=== PATIENT | female | born 1940 | race Caucasian/White ===

== ENCOUNTER → 2023-12-25 11:04 | Outpatient (REF) | payer MEDICARE, SELFPAY | LOC: RAD 11:04 | PROVIDERS: ATTENDING PHYSICIAN Internal Medicine Rheumatology; FAMILY PHYSICIAN Internal Medicine | DX: M06.4 Inflammatory polyarthropathy (principal); M19.011 Primary osteoarthritis, right shoulder; M25.539 Pain in unspecified wrist; M32.9 Systemic lupus erythematosus, unspecified; M79.646 Pain in unspecified finger(s); M79.673 Pain in unspecified foot; R76.8 Other specified abnormal immunological findings in serum | CPT/HCPCS: 73100; 73120; 73630 ==

== ENCOUNTER → 2023-12-27 12:58 | Outpatient (REF) | payer MEDICARE, SELFPAY | LOC: HWRAD 12:58 | PROVIDERS: ATTENDING PHYSICIAN Internal Medicine | DX: M81.0 Age-related osteoporosis without current pathological fracture (principal) | CPT/HCPCS: 77080 ==

== ENCOUNTER 2024-02-01 15:04 | Inpatient (IN) | payer MEDICARE, SELFPAY ==
[2024-02-01] VITALS (13 sets, daily range): BP systolic 94–156; BP diastolic 61–108; BMI 31.6; BMI 30.1
[2024-02-01 11:55] LABS: % Basophils 0.5 % (0-2); % Eosinophils 1.1 % (0-6); % Immature Granulocytes 0.3 % (0-0.5); % Lymphocytes 16.2 % (20.5-51.1); % Monocytes 8.8 % (1.7-9.3); % Neutrophils 73.1 % (42.2-75.2); Absolute Eosinophils 0.1 10^3/uL (0-0.7); Absolute Lymphocytes 1.2 10^3/uL (1.2-3.4); Absolute Monocytes 0.7 10^3/uL (0.1-0.6); Absolute Neutrophils 5.4 10^3/uL (1.4-6.5); Hematocrit 47.9 % (37.0-47.0); Hemoglobin 15.5 g/dL (12.0-16.0); Mean Corp Hgb Conc. 32.4 g/dL (33.0-37.0); Mean Corpuscular Hgb 29.9 pg (27.0-31.0); Mean Corpuscular Volume 92.3 fL (81.0-99.0); Mean Platelet Volume 8.9 fL (7.4-10.4); Nucleated Red Blood Cells % 0 %; Platelet Count 240 10^3/uL (130-400); Red Blood Cell Count 5.19 10^6/uL (4.20-5.40); Red Cell Dist. Width 15.2 % (11.5-14.5); White Blood Cell Count 7.4 10^3/uL (4.8-10.8)
[2024-02-01 12:21] LABS: ALT (SGPT) 18 U/L (0-35); AST (SGOT) 39 U/L (14-36); Albumin 4.9 g/dl (3.5-5.0); Alkaline Phosphatase 231 U/L (38-126); Blood Urea Nitrogen 30 mg/dl (7-17); Calcium 10.1 mg/dl (8.4-10.2); Carbon Dioxide 24 mmol/L (22-30); Chloride 102 mmol/L (98-107); Estimated Creatinine Clearance 40 ml/min; Glucose 96 mg/dl (70-99); Potassium 3.9 mmol/L (3.5-5.1); Sodium 139 mmol/L (135-145); Total Bilirubin 1.5 mg/dl (0.2-1.3); Total Protein 8.3 g/dl (6.3-8.2); eGFR 56.25
[2024-02-01 12:24] LABS: INR 1.57; PT 18.6 Sec (11.4-14.6)
[2024-02-01 12:26] LABS: APTT 36.6 Sec (23.4-35.0)
[2024-02-01 12:29] LABS: NT-proBNP 3910 pg/ml; Troponin I < 0.012 ng/ml
[2024-02-01] MEDS: ROCEPHIN 1000 MG IV (12:47)
[2024-02-01] MEDS: LASIX IV (13:17)
[2024-02-01] MEDS: VIBRAMYCIN 260 MG IV ×2 (13:19→21:07)
[2024-02-01 13:29] LABS: Lactic Acid 1.2 mmol/L (0.7-2.0)
--- NOTE | 2024-02-01 13:40 | HPS.HSE ---
Family Physician
-
Family Physician: Irene Cazares
Chief Complaint
-
SOB
History of Present Illness
The patient is an 83 yo woman with PMH significant for pulmonary HTN, A.fib on Eliquis, dilated RA, CHF, cardiac arrest 20[place] cruise ship, SLE/RA not on active tx due to macular degeneration (newly diagnosed), hypothyroidism, who presents to the
ED due to SOB that has worsened over the past 1 week. She's noticed this past week fluctuation in her weight by 3-4 pounds up one day, down the next, associated with increased work of breathing, associated with increased fatigue over the past 1
week. She takes Lasix every other day typically, took Lasix 40 mg PO this am. She goes to bed typically at 1 am, and noticed some increased dyspnea at bedtime last night, and this morning increased work of breathing after walking downstairs, which
is what brought her into the ED along with high heart rate (she monitors her vitals daily-HR 130s at home). She denies cough, denies noticing swelling in legs, no CP, no fevers, no URI symptoms, eating well up until today, no n/v/d, no abdominal
pain, no dysuria. In ED, she is in A.fib with RVR, CXR shows what looks like LLL consolidation and increased pulmonary edema.
ED txt: Lasix 40 IV (given approximately 3 pm), Cardizem 5 mg IV(not received due to soft BP), Cardizem gtt (not started), Rocephin IV 1 g, Doxy 100 mg IV
Medical History
Past Medical History
Past Medical History: Reports Arrhythmia (A.Fib with RVR), CAD (NSTEMI), Cancer (DCIS), CHF, HTN (Chronic diastolic), Hypercholesterolemia, Hypothyroidism and Other (SLE/RA)
Past Surgical History: Reports Cardiac (cardioversion 2016, 2010; cardiac cath 08/2017), Cholecystectomy, Orthopedic (Left knee replacement, right hip replacement) and Other (Right lumpectomy 2020)
Social History
Tobacco: Former Smoker
Alcohol: None
Drug: None
Family History
Family History: Other (Father 97 yo , mother from an accident in 1984)
Allergies / Home Medications
Allergies reflects when Allergies were last updated in [facility] [employer].
Home Medications with original date entered in [facility] [employer]
Allergy/Medication List:
Allergies
Allergy/AdvReac Type Severity Reaction Status Date / Time
No Known Allergies Allergy Verified 02/01/24 11:17
Home Medications
acetaminophen 500 mg tablet (Tylenol Extra Strength) 1,000 mg PO Q6HPRN PRN mild pain 10/08/19
biotin 5 mg capsule 5 mg PO DAILY 10/08/19
cholecalciferol (vitamin D3) 25 mcg (1,000 unit) tablet 1,000 units PO DAILY 10/08/19
furosemide 40 mg tablet 40 mg PO DAILYPRN PRN fluid 10/08/19
vit C 250 mg-vit E 90 mg-zinc 40 mg-copper 1 [id number] capsule (PreserVision AREDS-2) 1 ea PO BID 10/08/19
allopurinol 100 mg tablet 100 mg PO DAILY 02/01/24
apixaban 5 mg tablet (Eliquis) 5 mg PO BID 02/01/24
empagliflozin 10 mg tablet (Jardiance) 10 mg PO DAILY 02/01/24
levothyroxine 112 mcg tablet (Synthroid) 112 mcg PO DAILY 02/01/24
metoprolol succinate 100 mg tablet,extended release 24 hr 50 mg PO BID 02/01/24
rosuvastatin 5 mg tablet (Crestor) 5 mg PO DAILY 02/01/24
umeclidinium 62.5 mcg/actuation blister powder for inhalation (Incruse Ellipta) 1 inh inhalation R DAILYPRN PRN sob 02/01/24
Review of Systems
-
A 12 point ROS was completed and negative except as noted: Yes
Physical Exam
Vital Signs
Vital Signs
Temp Pulse Resp BP Pulse Ox
98.1 F 113 21 106/86 97
02/01/24 12:45 02/01/24 13:17 02/01/24 12:46 02/01/24 13:17 02/01/24 11:50
Physical Exam
General: Well Developed, Well Nourished, No Apparent Distress, Comfortable and Conversant
HEENT: NormoCephalic, Anicteric and Moist mucous membranes
Respiratory: Other (decreased BS LLL)
Cardiac: Irregular Rhythm and Tachycardia
GI: Soft, Non Tender and Non Distended
Musculoskeletal: No Clubbing, No Cyanosis and No Edema
Skin: Warm and Dry
Neuro: AO x 3, No Motor Deficits and Nonfocal/grossly intact
Psych: Calm
Laboratory Results
-
02/01/24 11:47
02/01/24 11:47
Laboratory Results
PT 18.6 Sec (11.4-14.6) H 02/01/24 11:47
INR 1.57 02/01/24 11:47
APTT 36.6 Sec (23.4-35.0) H 02/01/24 11:47
Lactic Acid Cancelled 02/01/24 16:30
Total Bilirubin 1.5 mg/dl (0.2-1.3) H 02/01/24 11:47
AST 39 U/L (14-36) H 02/01/24 11:47
ALT 18 U/L (0-35) 02/01/24 11:47
Alkaline Phosphatase 231 U/L (38-126) H 02/01/24 11:47
Troponin I < 0.012 ng/ml 02/01/24 11:47
Data Reviewed
-
Diagnostic Radiology: Image Personally Visualized and interpreted and Report Reviewed by me (LLL PNA)
Medical Tests (Nuc Med, Echo, EKG etc): Report Reviewed by me (Cindy.violetta RVR incomplete RBBB, LAFB, vent rate 127)
Impression/Plan
-
IMPRESSION:The patient is an 83 yo woman with PMH significant for pulmonary HTN, A.fib on Eliis, dilated RA, CHF, [place], SLE/RA not on active tx due to macular degeneration (newly diagnosed), hypothyroidism, who
presents to the ED due to SOB that has worsened over the past 1 week. She's noticed this past week fluctuation in her weight by 3-4 pounds up one day, down the next, associated with increased work of breathing, associated with increased fatigue over
the past 1 week. She takes Lasix every other day typically, took Lasix 40 mg PO this am. She goes to bed typically at 1 am, and noticed some increased dyspnea at bedtime last night, and this morning increased work of breathing after walking
downstairs, which is what brought her into the ED along with high heart rate (she monitors her vitals daily-HR 130s at home). She denies cough, denies noticing swelling in legs, no CP, no fevers, no URI symptoms, eating well up until today, no
n/v/d, no abdominal pain, no dysuria. In ED, she is in A.fib with RVR, CXR shows what looks like LLL consolidation and increased pulmonary edema.
ED txt: Lasix 40 IV (given approximately 3 pm), Cardizem 5 mg IV(not received due to soft BP), Cardizem gtt (not started), Rocephin IV 1 g, Doxy 100 mg IV
#SOB, CXR is concerning for a LLL consolidation, likely underlying pneumonia , possibly gram negative bacterial , CAP though patient is afebrile, with normal WBC and with components of CHF exacerbation
-will txt with continued IV abx for now and check pro-calcitonin level
-CXR is portable only-will get PA/Lat CXR in the am as well
-blood cx pending, sputum cx , Legionella Urinary antigen pending
#HFpEF, likely exacerbation s/p 1 dose IV Lasix in ED
-Echo 2020 EF 60-65% severely dilated RA
-Echo [place] [facility] Dr. Curry EF 60%, moderate mitral and tricuspid regurgitation
-Cont IV Lasix 40 BID for now and closely monitor i/o, daily weights
-Cards Cx appreciated
#A.fib RVR, possibly exacerbated by infection,
-Cardizem 5 mg not given in ED-pt is due for nightly BB soon-will give oral BB, and monitor on tele; HR currently in low 100s (107), low threshold to start Cardizem gtt if BP allows
-txt infection
-Cards Cx
-continue Eliquis BID
-check Mg
#Essential HTN
-cont home meds
#HLD
-statin
#Hypothyroidism
-check TSH
#Pulm HTN
-follows OP Pulm
-cont O2 and wean
-monitor
DVT proph-cont Eliquis
Full Code
[2024-02-01 13:59] LABS: COVID-19 Antigen Negative (Negative)
[2024-02-01] MEDS: LASIX 40 MG IV (15:02)
--- NOTE | 2024-02-01 16:58 | CON.CAR ---
Consultation
Consultation Request
Date/Time Consultation Requested: 02/01/2024 15: 00
Date/Time Consultation Performed: 02/01/2024 16: 00
Requesting Provider: Ankita
Performing Provider: Bandar
Reason for Consultation: chf
Medical History
-
Chief Complaint: Shortness of breath
History of Present Illness:
Sruthi has a history of permanent atrial fibrillation, left atrial appendage thrombus, chronic Eliquis, chronic diastolic CHF, hypothyroidism, moderate MR, hyperlipidemia, lupus, hypertension.
She is in [place] for part of the year. She was seen in our office in May 2023 then followed up at [facility] with Dr. Rider. She has been well until last night when she noticed shortness of breath and gurgling. She sat up and felt better. She
then had more shortness of breath and noted her heart rate to be in the 130s today came to the ER. She is admitted for acute diastolic CHF. She has had a 3 to 4 pound weight gain in the past week. She feels her normal weight is approximately 165
pounds.
PMH:
Chronic HFrEF
CM EF 45% by echo in [place] 07/01/19
Moderate MR by echo 07/01/19
Persistent Afib
Chronic Eliquis
HTN
Hypothyroidism
Past Medical History
Past Medical History: Other (See HPI)
Past Surgical History: Cholecystectomy (1987), Orthopedic (Left knee replacement 2006) and Other (Bilateral cataract surgery, right lumpectomy)
Social History
Tobacco: Former Smoker
Alcohol: None
Drug: None
Personal:
Living: With Family
Employment: Retired
Family History
Family History: Other (Father at 97, mother at 85. There is no family history of premature coronary artery disease)
Allergies / Home Medications
Allergy/AdvReac Type Severity Reaction Status Date / Time
No Known Allergies Allergy Verified 02/01/24 11:17
�Medication �Instructions �Recorded �Confirmed �Type
acetaminophen 500 mg tablet 1,000 mg PO Q6HPRN PRN mild pain 10/08/19 02/01/24 History
(Tylenol Extra Strength)
biotin 5 mg capsule 5 mg PO DAILY 10/08/19 02/01/24 History
cholecalciferol (vitamin D3) 25 1,000 units PO DAILY 10/08/19 02/01/24 History
mcg (1,000 unit) tablet
furosemide 40 mg tablet 40 mg PO DAILYPRN PRN fluid 10/08/19 02/01/24 History
vit C 250 mg-vit E 90 mg-zinc 40 1 ea PO BID 10/08/19 02/01/24 History
mg-copper 1 [id number]
capsule (PreserVision AREDS-2)
allopurinol 100 mg tablet 100 mg PO DAILY 02/01/24 02/01/24 History
apixaban 5 mg tablet (Eliquis) 5 mg PO BID 02/01/24 02/01/24 History
empagliflozin 10 mg tablet 10 mg PO DAILY 02/01/24 02/01/24 History
(Jardiance)
levothyroxine 112 mcg tablet 112 mcg PO DAILY 02/01/24 02/01/24 History
(Synthroid)
metoprolol succinate 100 mg 50 mg PO BID 02/01/24 02/01/24 History
tablet,extended release 24 hr
rosuvastatin 5 mg tablet (Crestor) 5 mg PO DAILY 02/01/24 02/01/24 History
umeclidinium 62.5 mcg/actuation 1 inh inhalation R DAILYPRN PRN sob 02/01/24 02/01/24 History
blister powder for inhalation
(Incruse Ellipta)
Review of Systems
-
History Source: Patient
All other systems: Negative unless noted
Constitutional: Weight Gain (Gained 4 pounds in the past week)
EENT: No Symptoms
Respiratory: Trouble Breathing
Cardiac: No Symptoms
Abdomen/GI: No Symptoms
: No Symptoms
Musculoskeletal: No Symptoms
Skin: No Symptoms
Neurological: No Symptoms
Endocrine: No Symptoms
Hematologic/Lymphatic: No Symptoms
Physical Exam
Vital Signs
Temp Pulse Resp BP Pulse Ox
98.0 F 93 18 126/82 98
02/01/24 16:54 02/01/24 16:54 02/01/24 16:54 02/01/24 16:54 02/01/24 16:54
General: Well developed, well nourished in NAD.
Neck: Supple, no JVD, HJR, carotids +2 B/L, no bruits bilaterally.
Heart: Non displaced PMI, RRR, no murmurs, No S3, S4, no rubs.
Lungs: Scattered rhonchi at the bases
Abdomen: Normal bowel sounds, soft, non-tender, non-distended.
Extremities: No clubbing, cyanosis or edema bilaterally.
Neuro: Grossly nonfocal, awake, alert and oriented x3.
Lab Results
02/01/24 11:47
02/01/24 11:47
Troponin I < 0.012 ng/ml 02/01/24 11:47
Uyr-Q-Ruxynapwoac Pept 3910 pg/ml 02/01/24 11:47
Impression / Plan
-
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 Mitch Garcia [facility] [place] [phone] open 9-4:30
[facility] Rider
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
Impression:
Acute HFrEF
Moderate MR by echo 07/01/19 and September 2023
Status post possible PEA arrest on a cruise ship April 2023 and also had COVID, UTI and CHF
Permanent Afib
Chronic Eliquis
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
Lupus
HTN
Hypothyroidism
Echo 07/01/19: [facility]: EF 45%, mild AI/, mod MR
Echocardiogram 08/12/2020: Ejection fraction 50 to 55%, moderate MR, mild AI, moderate TR PA systolic of 56 mmHg
Echocardiogram June 2021: Ejection fraction 60 to 65%, mild to moderate TR with PA systolic of 30 mmHg and moderate MR
Echocardiogram 02/06/2023: Ejection fraction 50 to 55%, LVH, no significant mitral valve disease
KATARINA 05/06/2023: Ejection fraction 60 to 65%, spontaneous contrast left atrial appendage which was poorly visualized, mild MR, mild TR
4-day monitor February 2021 with permanent atrial fibrillation with mean heart rate of 85
Echocardiogram 09/16/2023: Ejection fraction 60%, moderate MR, moderate TR, moderate pulm hypertension with PA systolic of 57 mm Hg
Lexiscan sestamibi stress test 05/30/2023: Small fixed mild anteroseptal defect consistent with soft tissue attenuation�intermediate risk stress test due to pharmacologic protocol
Plan:
She presents with acute diastolic CHF with proBNP of 3910
Also chest x-ray is read as pneumonia as well
Will continue IV Lasix and antibiotics
Of note she reports normal weight is 165 pounds and she is 161 pounds in the ER on a bed scale.
May be more pneumonia than CHF.
Will need to get records from [facility]
Continue rate control and anticoagulation for atrial fibrillation
Discussed with patient and son at bedside
Data Reviewed
-
EKG: Tracing Personally Visualized and interpreted
Radiology: Report Reviewed by me
Medical Tests (Nuc Med, Echo etc): Report Reviewed by me
Labs: Labs Reviewed by me
Old Records: Reviewed
--- NOTE | 2024-02-01 17:30 | PTCARENOTE ---
Received from ED, VSS, monitor shows afbib, hr 70-90s. Denies pain, no SOB. Lung sounds diminished in left base, 2L intact.
[2024-02-01 18:38] LABS: Troponin I < 0.012 ng/ml
[2024-02-01 18:46] LABS: Procalcitonin 0.07 ng/ml (0.0-0.25)
[2024-02-01] MEDS: ELIQUIS 5 MG PO (21:05)
[2024-02-01] MEDS: TYLENOL 1000 MG PO (21:05)
[2024-02-01] MEDS: OCUVITE SOFTGEL 1 CAP PO (21:07)
[2024-02-01] MEDS: TOPROL XL 50 MG PO (21:14)
[2024-02-02] VITALS (7 sets, daily range): BP systolic 104–139; BP diastolic 63–88; PULSE 91; O2SAT 98; BMI 30.3
[2024-02-02] MEDS: SYNTHROID 112 MCG PO (05:49)
[2024-02-02 09:09] LABS: Hematocrit 42.2 % (37.0-47.0); Hemoglobin 13.8 g/dL (12.0-16.0); Mean Corp Hgb Conc. 32.7 g/dL (33.0-37.0); Mean Corpuscular Hgb 29.8 pg (27.0-31.0); Mean Corpuscular Volume 91.1 fL (81.0-99.0); Mean Platelet Volume 9.3 fL (7.4-10.4); Platelet Count 219 10^3/uL (130-400); Red Blood Cell Count 4.63 10^6/uL (4.20-5.40); White Blood Cell Count 4.9 10^3/uL (4.8-10.8)
[2024-02-02] MEDS: ZYLOPRIM 100 MG PO (09:14)
[2024-02-02] MEDS: TOPROL XL 50 MG PO ×2 (09:14→19:45)
[2024-02-02] MEDS: CRESTOR 5 MG PO (09:14)
[2024-02-02] MEDS: ELIQUIS 5 MG PO ×2 (09:14→19:46)
[2024-02-02] MEDS: JARDIANCE 10 MG PO (09:14)
[2024-02-02] MEDS: OCUVITE SOFTGEL 1 CAP PO ×2 (09:15→19:47)
[2024-02-02] MEDS: LASIX 40 MG IV ×2 (09:15→16:43)
[2024-02-02] MEDS: VIBRAMYCIN 260 MG IV (09:15)
[2024-02-02 09:34] LABS: ALT (SGPT) 17 U/L (0-35); AST (SGOT) 30 U/L (14-36); Albumin 3.8 g/dl (3.5-5.0); Alkaline Phosphatase 192 U/L (38-126); Blood Urea Nitrogen 28 mg/dl (7-17); Calcium 9.5 mg/dl (8.4-10.2); Carbon Dioxide 30 mmol/L (22-30); Chloride 103 mmol/L (98-107); Estimated Creatinine Clearance 45 ml/min; Glucose 77 mg/dl (70-99); Magnesium 2.2 mg/dl (1.6-2.3); Potassium 3.9 mmol/L (3.5-5.1); Sodium 138 mmol/L (135-145); Total Protein 6.6 g/dl (6.3-8.2); eGFR > 60.00
[2024-02-02 10:02] LABS: TSH Reflex To Free T4 2.58 uIU/ml (0.47-4.68)
--- NOTE | 2024-02-02 10:25 | CM ---
Patient seen bedside with son Louis in room.
Patient independent prior to admission.
Patient lives in [place], will need records on d/c, medical release form given to patient.
patient lives in a 2 story home with 13 steps to second floor.
Patient drives.
Patient has not had VN, did attend outpatient therapy in the past.
Son will transport home.
PCP: dr Cazares
Pharmacy; [facility]
Plan: home, no needs anticipated.
--- NOTE | 2024-02-02 10:47 | W.PN.CARDCBS ---
Today's Communication / Plan
-
Continue IV Lasix
Continue antibiotics
Consider change to oral Lasix on 02/02
Get records from [facility]
Impression / Plan
-
Gamemaster: Dr. Mitch Garcia [facility] [phone] open 9-4:30
[facility] Adry
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
Impression:
Acute HFrEF
Moderate MR by echo 07/01/19 and September 2023
Status post possible PEA arrest on a cruise ship April 2023 and also had COVID, UTI and CHF
Permanent Afib
Chronic Eliquis
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
Lupus
HTN
Hypothyroidism
Echo 07/01/19: [facility]: EF 45%, mild AI/, mod MR
Echocardiogram 08/12/2020: Ejection fraction 50 to 55%, moderate MR, mild AI, moderate TR PA systolic of 56 mmHg
4-day monitor February 2021 with permanent atrial fibrillation with mean heart rate of 85
Echocardiogram June 2021: Ejection fraction 60 to 65%, mild to moderate TR with PA systolic of 30 mmHg and moderate MR
Echocardiogram 02/06/2023: Ejection fraction 50 to 55%, LVH, no significant mitral valve disease
[facility] 05/06/2023: Ejection fraction 60 to 65%, spontaneous contrast left atrial appendage which was poorly visualized, mild MR, mild TR
Lexiscan sestamibi stress test 05/30/2023: Small fixed mild anteroseptal defect consistent with soft tissue attenuation�intermediate risk stress test due to pharmacologic protocol
Echocardiogram 09/16/2023: Ejection fraction 60%, moderate MR, moderate TR, moderate pulm hypertension with PA systolic of 57 mm Hg
Plan:
She seems much improved
May be more pneumonia than CHF
Continue IV Lasix and consider change to oral Lasix on 02/02
Will need to get records from [facility]
Continue rate control and anticoagulation for atrial fibrillation
Progress Note - Gamemaster
Subjective
Date of Service: February 02, 2024
She is without complaints.
Objective
Labs:
02/02/24 07:51
02/02/24 07:51
Labs
Hgb 13.8 g/dL (12.0-16.0) 02/02/24 07:51
Hct 42.2 % (37.0-47.0) 02/02/24 07:51
Plt Count 219 10^3/uL (130-400) 02/02/24 07:51
PT 18.6 Sec (11.4-14.6) H 02/01/24 11:47
INR 1.57 02/01/24 11:47
APTT 36.6 Sec (23.4-35.0) H 02/01/24 11:47
Sodium 138 mmol/L (135-145) 02/02/24 07:51
Potassium 3.9 mmol/L (3.5-5.1) 02/02/24 07:51
BUN 28 mg/dl (7-17) H 02/02/24 07:51
Creatinine 0.9 mg/dL (0.6-1.0) 02/02/24 07:51
Glucose 77 mg/dl (70-99) 02/02/24 07:51
Troponins
02/01/24 02/01/24
11:47 17:26
Troponin I < 0.012 < 0.012
Vital Signs and I&O:
Vital Signs
Temp Pulse Resp BP Pulse Ox
97.8 F 83 16 104/70 98
02/02/24 07:41 02/02/24 08:17 02/02/24 08:17 02/02/24 07:41 02/02/24 08:17
Vital Signs
Temp Pulse Resp BP Pulse Ox
97.8 F 83 16 104/70 98
02/02/24 07:41 02/02/24 08:17 02/02/24 08:17 02/02/24 07:41 02/02/24 08:17
Intake & Output
01/31/24 02/01/24 02/02/24 02/03/24
06:59 06:59 06:59 06:59
Intake Total 540 / 540
Output Total 350 / 350
Balance 190 / 190
Physical Exam
Physical Exam
General: Well developed, well nourished in NAD.
Neck: Supple, no JVD, HJR, carotids +2 B/L, no bruits bilaterally.
Heart: Non displaced PMI, irregular, 2/6 basal systolic murmur, No S3, S4, no rubs.
Lungs: Scattered rhonchi
Extremities: No clubbing, cyanosis or edema bilaterally.
Neuro: Grossly nonfocal, awake, alert and oriented x3.
[2024-02-02] MEDS: STERILE WATER FOR INJECTION 10 ML IV (12:01)
[2024-02-02] MEDS: ROCEPHIN 1000 MG IV (12:01)
--- NOTE | 2024-02-02 12:13 | W.PN.HOSP.TC ---
Today's Communication/Plan
-
cont diuresis per cards
echo in AM
consult pulm
Assessment / Plan
Assessment / Plan
pt is an 83 year old female
SOB--CXR is concerning for a LLL consolidation (loculated pleural effusion), possibly underlying pneumonia though patient is afebrile with normal WBC and with components of CHF exacerbation--consult pulm--procalcitonin negative--blood cx pending,
sputum cx , Legionella Urinary antigen neg--cont rocephin/doxy
acute exacerbation of HFpEF-- s/p 1 dose IV Lasix in ED---Cont IV Lasix 40 BID for now and closely monitor i/o, daily weights--Cards Cx appreciated--echo pending
paroxysmal A.fib RVR-- possibly exacerbated by infection--cont rate control and eliquis
Essential HTN--cont home meds
HLD--statin
Hypothyroidism--check TSH
Pulm HTN--follows OP Pulm--cont O2 and wean
DVT proph-cont Eliquis
Full Code
Anticipated Discharge: > 48 hours
Subjective/Interval History
-
Date of Service: February 02, 2024
pt feeling much improved since admission
Objective Data
-
Labs:
Laboratory Results
02/02/24
07:51
WBC 4.9
Hgb 13.8
Hct 42.2
Plt Count 219
Sodium 138
Potassium 3.9
Chloride 103
Carbon Dioxide 30
BUN 28 H
Creatinine 0.9
Glucose 77
Calcium 9.5
Total Bilirubin 1.0
AST 30
ALT 17
Alkaline Phosphatase 192 H
Vital Signs:
max temp for 24 hours
02/01/24
12:45
Temp 98.1 F
Vital Signs
Temp Pulse Resp BP Pulse Ox
97.8 F 83 16 104/70 98
02/02/24 07:41 02/02/24 08:17 02/02/24 08:17 02/02/24 07:41 02/02/24 08:17
I&O
02/01/24 02/02/24 02/03/24
06:59 06:59 06:59
Intake Total 540 / 540
Output Total 350 / 350
Balance 190 / 190
Review of Systems
-
All other systems: Reviewed and negative
Physical Exam
-
General: Well Developed, Well Nourished and No Apparent Distress
HEENT: Normocephalic and Atraumatic; Negative Oxygen
Respiratory: Clear to Auscultation; Negative Wheezes, Rales, Rhonchi or Crackles
Cardiac: Irregular Rhythm; Negative Murmur
GI: Soft, Nontender, Nondistended and Normal Bowel Sounds
Musculoskeletal: No Clubbing, No Cyanosis and No Edema
Skin: Warm
Neuro: Awake and Alert
--- NOTE | 2024-02-02 14:30 | CON.PUL ---
Consultation
Consultation Request
Date/Time Consultation Requested: 02/02/2024 - 121
Date/Time Consultation Performed: 02/02/2024 - 1340
Requesting Provider: Dr. Varma
Performing Provider: Dr. Palma
Reason for Consultation: Loculated pleural effusion
Medical History
-
Chief Complaint: SOB
History of Present Illness:
Patient is an 83-year-old female with a past medical history of diastolic heart failure, gout, hypertension, hyperlipidemia, paroxysmal A-fib on Eliquis, hypothyroidism, history of right-sided breast cancer (DCIS), and history of cardiac arrest
(April 2023) who presents with shortness of breath and rapid heart rate that began on morning of admission. In the ER she was tachycardic to 144, tachypneic to 22, BP 154/107, she was afebrile to 98 �F and SpO2 97% on room air. Labs showed an
elevated BUN of 30, total bilirubin of 1.5, increased ALP of 231, proBNP of 3910 and she was COVID antigen negative. Blood cultures were collected and she was flu A/B swab negative. CXR was performed showing acute interstitial pulmonary edema with
right-sided midlung/lower lobe scarring and a LLL pneumonia with suspected pleural effusion. Patient given Lasix in the ER in addition to antibiotics with doxycycline and ceftriaxone, and admitted to telemetry under hospitalist service. Patient
continues to be on Lasix as well as antibiotics and CXR performed again today shows persistent, albeit improved left-sided pleural effusion with suggested loculations. Pulmonary now consulted for additional management/recommendations.
When I saw the patient, she was laying in bed on room air breathing comfortably. She says that she had shortness of breath starting this past Saturday and when she laid down she felt gurgling on her chest. She did feel fatigue that was settling in
for approximately 1 week. She denies any recent sick contacts or recent travel. She also denies any phlegm production. Denies fevers, chills, chest pain. She does follow with a continuous improvement black belt at the [facility], Dr. Haney. She started
the inhaler for about 30 days but she did not feel better so she stopped it. She is not sure which inhaler this was. She currently denies chest pain, headache, abdominal pain, diarrhea, fevers or chills.
PMHx: Hypertension, hyperlipidemia, hypothyroidism, paroxysmal A-fib on Eliquis, cervical disc prolapse with root compression, osteoporosis, history of SLE, history of RA, diastolic heart failure, history of DCIS (right breast), chronic LBP, right
shoulder rotator cuff tear, history of gout, macular degeneration, history of cardiac arrest while [place] a cruise ship (April 2023)
PSHx: Cholecystectomy, left knee replacement, history of cardioversion next 2 (), right intra-articular hip injection, right breast biopsy, right lumpectomy, bilateral cataract surgery, closed reduction of depressed nasal fracture (April
2022)
Past Medical History
Past Medical History: Other (Above as per HPI)
Past Surgical History: Other (Above as per HPI)
Social History
Tobacco: Former Smoker (Smoked 1 PPD X 20 years, quit in the )
Alcohol: None
Drug: None
Family History
Family History: CAD (Father), Cancer (Daughter: Breast cancer; sister: Gastric melanoma) and Other (Father: Macular degeneration)
Allergies / Home Medications
Allergies
Allergy/AdvReac Type Severity Reaction Status Date / Time
No Known Allergies Allergy Verified 02/01/24 11:17
Home Medications
�Medication �Instructions �Recorded �Confirmed �Last Taken �Type
acetaminophen 500 mg tablet 1,000 mg PO Q6HPRN PRN mild pain 10/08/19 02/01/24 10/07/19 History
(Tylenol Extra Strength)
biotin 5 mg capsule 5 mg PO DAILY 10/08/19 02/01/24 02/01/24 History
cholecalciferol (vitamin D3) 25 1,000 units PO DAILY 10/08/19 02/01/24 02/01/24 History
mcg (1,000 unit) tablet
furosemide 40 mg tablet 40 mg PO DAILYPRN PRN fluid 01/11/2602/01/24 10/08/19 History
vit C 250 mg-vit E 90 mg-zinc 40 1 ea PO BID 10/08/19 02/01/24 02/01/24 History
mg-copper 1 [id number]
capsule (PreserVision AREDS-2)
allopurinol 100 mg tablet 100 mg PO DAILY 02/01/24 02/01/24 02/01/24 History
apixaban 5 mg tablet (Eliquis) 5 mg PO BID 02/01/24 02/01/24 02/01/24 History
empagliflozin 10 mg tablet 10 mg PO DAILY 02/01/24 02/01/24 02/01/24 History
(Jardiance)
levothyroxine 112 mcg tablet 112 mcg PO DAILY 02/01/24 02/01/24 02/01/24 History
(Synthroid)
metoprolol succinate 100 mg 50 mg PO BID 02/01/24 02/01/24 02/01/24 History
tablet,extended release 24 hr
rosuvastatin 5 mg tablet (Crestor) 5 mg PO DAILY 02/01/24 02/01/24 02/01/24 History
umeclidinium 62.5 mcg/actuation 1 inh inhalation R DAILYPRN PRN sob 02/01/24 02/01/24 Unknown History
blister powder for inhalation
(Incruse Ellipta)
Review of Systems
-
History Source: Patient
All other systems: Negative unless noted
Vitals / Labs / Diagnostic Testing
Vital Signs
Temp Pulse Resp BP Pulse Ox
98.3 F 85 16 113/66 97
02/02/24 11:45 02/02/24 11:45 02/02/24 11:45 02/02/24 11:45 02/02/24 11:45
Lab Data
02/02/24 07:51
02/02/24 07:51
Microbiology
02/01/24 13:03 Blood/Venous Blood Culture - Preliminary
No Growth in 24 hours- Final report to follow
02/01/24 13:03 Blood/Venous Blood Culture - Preliminary
No Growth in 24 hours- Final report to follow
02/02/24 10:52 Urine Legionella Urinary Antigen - Final
Negative for Legionella pneumophila Serogroup 1 antigen.
A negative result does not rule out the possiblity of
Legionella infection due to other serogroups or species of
Legionella. Clinical correlation is recommended.
02/01/24 13:03 Nasal Swab Influenza Types A & B (VIRAJ) - Final
Negative for Influenza A & B, NAAT
Negative results must be combined with clinical observations
and patient history.
Nucleic Acid Amplification test (NAAT)performed on the
[employer] platform.
Diagnostic Testing:
Physical Exam
-
HEENT: Normocephalic and Anicteric
Cardiovascular: S1/S2 and Peripheral Edema (Negative)
Respiratory: Wheeze (Negative), Rales (Bilaterally), Rhonchi (Negative), Non-Labored Respirations and Other (Reduced breath sounds at the left lung base)
GI: Soft, Non Distended, Non Tender and Normal Bowel Sounds
Neurology: AO x 3 and Tremors (Negative)
Skin: Warm and Dry
General: Comfortable and Chills (Negative)
Assessment
-
Assessment: Patient is an 83-year-old female with a past medical history of diastolic heart failure, gout, hypertension, hyperlipidemia, paroxysmal A-fib on Eliquis, hypothyroidism, history of right-sided breast cancer (DCIS), and history of
cardiac arrest (April 2023) who presents with shortness of breath and rapid heart rate that began on morning of admission. In the ER she was tachycardic to 144, tachypneic to 22, BP 154/107, she was afebrile to 98 �F and SpO2 97% on room air. Labs
showed an elevated BUN of 30, total bilirubin of 1.5, increased ALP of 231, proBNP of 3910 and she was COVID antigen negative. Blood cultures were collected and she was flu A/B swab negative. CXR was performed showing right-sided midlung/lower
lobe scarring and a LLL pneumonia with suspected pleural effusion. Patient given Lasix in the ER in addition to antibiotics with doxycycline and ceftriaxone, and admitted to telemetry under hospitalist service. Patient continues to be on Lasix as
well as antibiotics and CXR performed again today shows persistent, albeit improved left-sided pleural effusion with suggested loculations. Pulmonary now consulted for additional management/recommendations.
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
chronic LBP, right shoulder rotator cuff tear, history of gout, macular degeneration, history of cardiac arrest while on a cruise ship (April 2023)
Impression:
#Left-sided pleural effusion with suspected loculated component; cannot rule out underlying pneumonia
#Acute HFpEF exacerbation
#Hx of LAUREN thrombus
#Permanent A-fib on Eliquis
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
#Personal history of COVID-19
#History of RA + SLE
#Hypothyroidism
Plan:
- Obtain CT chest to clearly identify if a loculated L-pleural effusion exists --> if so, then consult IR for thoracentesis
- If effusion is tapped and there is pus, then she will need a chest tube for empyema and will also likely need lytics
- Depending on results of CT chest, a chest tube may be best option with lytics otherwise she may need multiple thoracentesis procedures to fully drain loculated collection
- Continue Abx; follow up infectious workup with blood Cx; check sputum Cx and Strep PNA urine antigen
- Maintain SpO2 >90-94% with supplemental O2 as needed
- Continue diuresis and maintain net negative fluid balance as tolerated
- Incentive spirometer
- It is reported that she is on Incruse as an outpatient, however there is no Hx of COPD. Unclear if she will benefit from this, and we can just do duonebs prn for now
- Obtain medical records from her private continuous improvement black belt, Dr. Haney from [facility]
- Replete electrolytes with K>4, Mg>2
- Maintain euglycemia with goal BG >100 and <180
- prn nebulized bronchodilators
- DVT ppx
Pulmonary service will continue to follow along.
Total time spent today was 55 minutes for this encounter. Time includes reviewing laboratory test/imaging results, reviewing pertinent medical records, obtaining and reviewing medical history, performing an appropriate exam, ordering medications,
tests and procedures. Time also includes documentation of this encounter, coordinating patient care and communicating with other healthcare professionals. Total time does not include separately billed tests performed on this date of service.
Data:
CXR 02-02-2024:
Moderate loculated left pleural effusion. Improved. Underlying pneumonia not excluded.
[2024-02-02] MEDS: VIBRAMYCIN 100 MG PO (19:45)
[2024-02-03 03:00] VITALS: BP 113/71
[2024-02-03] MEDS: SYNTHROID 112 MCG PO (05:47)
[2024-02-03 06:00] VITALS: BMI 30.1
[2024-02-03 07:25] VITALS: BP 138/72
[2024-02-03 08:00] LABS: Hematocrit 42.4 % (37.0-47.0); Hemoglobin 14.2 g/dL (12.0-16.0); Mean Corp Hgb Conc. 33.5 g/dL (33.0-37.0); Mean Corpuscular Hgb 29.8 pg (27.0-31.0); Mean Corpuscular Volume 89.1 fL (81.0-99.0); Mean Platelet Volume 9.3 fL (7.4-10.4); Platelet Count 233 10^3/uL (130-400); Red Blood Cell Count 4.76 10^6/uL (4.20-5.40); Red Cell Dist. Width 14.4 % (11.5-14.5); White Blood Cell Count 5.9 10^3/uL (4.8-10.8)
[2024-02-03] MEDS: VIBRAMYCIN 100 MG PO (08:29)
[2024-02-03] MEDS: TOPROL XL 50 MG PO ×3 (08:30→19:51)
[2024-02-03] MEDS: CRESTOR 5 MG PO (08:30)
[2024-02-03] MEDS: ELIQUIS 5 MG PO ×2 (08:30→19:51)
[2024-02-03] MEDS: LASIX 40 MG IV ×2 (08:30→16:42)
[2024-02-03] MEDS: JARDIANCE 10 MG PO (08:30)
[2024-02-03] MEDS: ZYLOPRIM 100 MG PO (08:30)
[2024-02-03] MEDS: OCUVITE SOFTGEL 1 CAP PO ×2 (08:31→19:51)
[2024-02-03 08:51] LABS: ALT (SGPT) 18 U/L (0-35); AST (SGOT) 35 U/L (14-36); Albumin 3.8 g/dl (3.5-5.0); Alkaline Phosphatase 196 U/L (38-126); Blood Urea Nitrogen 35 mg/dl (7-17); Calcium 9.4 mg/dl (8.4-10.2); Carbon Dioxide 28 mmol/L (22-30); Chloride 100 mmol/L (98-107); Estimated Creatinine Clearance 45 ml/min; Glucose 87 mg/dl (70-99); Magnesium 2.1 mg/dl (1.6-2.3); Phosphorus 4.1 mg/dl (2.5-4.5); Potassium 3.8 mmol/L (3.5-5.1); Sodium 133 mmol/L (135-145); Total Bilirubin 0.7 mg/dl (0.2-1.3); Total Protein 6.7 g/dl (6.3-8.2); eGFR > 60.00
--- NOTE | 2024-02-03 09:59 | W.PN.HOSP.TC ---
Addendum entered and electronically signed by Larry Otero MD 02/03/24 17:11:
Permanent atrial fibrillation
Original Note:
Today's Communication/Plan
-
Will await pulmonary input on results of CT scan but would defer IR intervention at this point given amount of effusion reported
Need further rate control and input from cardiology
Doubt infective process with normal white count and negative procalcitonin
Assessment / Plan
Assessment / Plan
pt is an 83 year old female
SOB--CXR is concerning for a LLL consolidation (loculated pleural effusion), possibly underlying pneumonia though patient is afebrile with normal WBC and with components of CHF exacerbation-
-consult pulm--procalcitonin negative-CT scan of the chest did not show definitive areas of loculation will defer decision on thoracentesis until further evaluation by pulmonary/abdominal effusion seems to have lessened
-blood cx pending, sputum cx , Legionella Urinary antigen neg--cont rocephin/doxy for now but low threshold for discontinuation at this point
acute exacerbation of HFpEF-- s/p 1 dose IV Lasix in ED---Cont IV Lasix 40 BID for now and closely monitor i/o, daily weights--Cards Cx appreciated--echo pending
paroxysmal A.fib RVR-- possibly exacerbated by infection--cont rate control and eliquis
-Having further issues with RVR and rate control contributing to symptoms
-Presently only on metoprolol XL 50 mg
Essential HTN--cont home meds
HLD--statin
Hypothyroidism--check TSH
Pulm HTN--follows OP Pulm--cont O2 and wean
DVT proph-cont Eliquis
Full Code
Anticipated Discharge: 24 - 48 hours
Subjective/Interval History
-
Date of Service: February 03, 2024
Patient prepped the more short of breath when she was in the bathroom and heart rate went into the 140s first time she was actually of breath since arrival here which is the reason she came in.
Objective Data
-
Labs:
Laboratory Results
02/03/24
07:28
WBC 5.9
Hgb 14.2
Hct 42.4
Plt Count 233
Sodium 133 L
Potassium 3.8
Chloride 100
Carbon Dioxide 28
BUN 35 H
Creatinine 0.9
Glucose 87
Calcium 9.4
Total Bilirubin 0.7
AST 35
ALT 18
Alkaline Phosphatase 196 H
Vital Signs:
Vital Signs
Temp Pulse Resp BP Pulse Ox
97.9 F 89 17 138/72 96
02/03/24 07:25 02/03/24 07:25 02/03/24 07:25 02/03/24 07:25 02/03/24 07:25
I&O
02/02/24 02/03/24 02/04/24
06:59 06:59 06:59
Intake Total 540 / 540 1200 / 1200
Output Total 350 / 350
Balance 190 / 190 1200 / 1200
Review of Systems
-
History Source: Patient
Constitutional: Reports Fatigue
Respiratory: Reports Trouble Breathing (When heart rate)
Physical Exam
-
General: Well Developed
HEENT: Normocephalic
Respiratory: Decreased Breath Sounds (Left base)
Cardiac: Irregular Rhythm and Tachycardic
GI: Soft
Musculoskeletal: Edema, Right Lower Extrem and Edema, Left Lower Extrem
Neuro: Awake, Alert and Oriented
Psych: Calm
Data Reviewed
-
Total Time Spent with Patient (in minutes): 56
CT Scan: Report Reviewed by me (Reviewed results of CT scan showing small pleural effusion no apparent loculation versus atelectasis) and Discussed with Physician
Labs: Labs Reviewed by me (White count stable/sodium 133)
[2024-02-03 11:00] VITALS: BP 116/70
--- NOTE | 2024-02-03 11:24 | CM ---
Patient seen bedside, reports no needs to CM at this time. Patient reports she will call her son for transportation home when she is clear for discharge. Per PT, no skilled need. CM will continue to follow for discharge planning needs.
Plan; home with son, no needs.
[2024-02-03] MEDS: ROCEPHIN 1000 MG IV (11:37)
[2024-02-03] MEDS: STERILE WATER FOR INJECTION 10 ML IV (11:37)
--- NOTE | 2024-02-03 13:58 | W.PN.CARDCBS ---
Addendum entered and electronically signed by Acosta Waldron MD 02/03/24 18:02:
Patient feels better, less dyspnea. Antibiotics/inhalers to be discontinued. No plans for thoracentesis.
Allergies: None to meds
Current meds: Allopurinol 100 mg a day, apixaban 5 mg twice daily, Jardiance 10 mg a day, Synthroid 112 mcg daily, metoprolol ER 50 mg twice daily, rosuvastatin 5 mg a day, furosemide 40 mg twice daily,
Outpatient meds: Allopurinol 100 mg a day, apixaban 5 twice daily, Jardiance 10 mg a day, furosemide 40 mg daily as needed, Synthroid, metoprolol ER 50 mg twice daily, previously 100 mg twice daily, rosuvastatin 5 mg a day, Incruse Ellipta
PMH/PSH/SH/FH: Reviewed
Review of systems negative except as above
116/74, pulse 91, respiratory rate 18, afebrile, sats 96%, weight is 73.5 kg down 0.5 kg, down 2.3 kg from admission
No distress, head neck exam unremarkable, lungs with some diminished breath sounds left base, cardiac irregular rate and rhythm without obvious murmurs, JVD okay, abdomen benign, extremities without much edema
Hemoglobin 14.2, sodium 133, BUN 35, creatinine 0.9
Telemetry: Rapid ventricular response
Chest CT small moderate left pleural effusion with compressive atelectasis aortic arch mildly dilated
ECG atrial fibrillation, left anterior fascicular block, LVH, possible lateral infarction
Impression:
Acute HFimpEF, EF 60% September 2023
Moderate MR by echo 07/01/19 and September 2023
Status post possible PEA arrest on a cruise ship April 2023 and also had COVID, UTI and CHF
Permanent Afib
Chronic Eliquis
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
Lupus
HTN
Hypothyroidism
Plan:
Overall, she appears improved from standpoint of acute heart failure. Volume status looks reasonable. Will transition to oral furosemide 60 mg daily in a.m.
However, ventricular response is rapid. Previously patient had been on metoprolol 100 mg twice daily in [place] and this was reduced when hospitalized related to hypotension. We will attempt to increase metoprolol ER from 50 mg twice daily back to
100 mg twice daily and watch blood pressure. If hypotensive we may need to continue alternatives such as digoxin, amiodarone for rate control, midodrine, etc.
She is mildly hyponatremic and potassium is 3.8. Spironolactone may have a role in HFpEF, will add 12.5 mg daily.
Hopefully ready for discharge in a.m.
Original Note:
Today's Communication / Plan
-
Extra Toprol XL 50 mg now, then 50 mg as ordered tonight and then switch to Toprol XL 100 mg BID in AM
Cont Eliquis
Weight is only down 1 lb
Impression / Plan
-
Physiotherapy Practice Manager: Dr. Mitch Garcia [facility] [place] [phone] open 9-4:30
[facility] [place]
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
Impression:
Acute HFrEF
Moderate MR by echo 07/01/19 and September 2023
Status post possible PEA arrest on a cruise ship April 2023 and also had COVID, UTI and CHF
Permanent Afib
Chronic Eliquis
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
Lupus
HTN
Hypothyroidism
Lexiscan sestamibi stress test 05/30/23: Small fixed mild anteroseptal defect consistent with soft tissue attenuation�intermediate risk stress test due to pharmacologic protocol
4-day monitor February 2021 with permanent atrial fibrillation with mean heart rate of 85
Echo 07/01/19: [facility]: EF 45%, mild AI/, mod MR
Echo 08/12/20: Ejection fraction 50 to 55%, moderate MR, mild AI, moderate TR PA systolic of 56 mmHg
Echo June 2021: Ejection fraction 60 to 65%, mild to moderate TR with PA systolic of 30 mmHg and moderate MR
Echo 02/06/23: Ejection fraction 50 to 55%, LVH, no significant mitral valve disease
KATARINA 05/06/23: Ejection fraction 60 to 65%, spontaneous contrast left atrial appendage which was poorly visualized, mild MR, mild TR
Echo 09/16/23: Ejection fraction 60%, moderate MR, moderate TR, moderate pulm hypertension with PA systolic of 57 mm Hg
Plan:
-Weight is down 1 lb overnight. Dry weight not known and patient is below previous dry weight from last HF admission at in 2019. No reported symptomatic improvement. Cont Lasix 40 mg IV BID. Patient was taking Lasix 40 mg daily PRN prior to
admission. Cre stable with diuresis
-Small to moderate left pleural effusion noted and Pulmonology following. No immediate plans for IR intervention
-Patient with known permanent Afib. HRs generally controlled with Toprol XL 50mg BID. Patient seems to be more SOB with activity and this correlates with increased HR. Patient previously tolerated higher dose Toprol XL 100 mg BID. Will give an
additional Toprol XL 50 mg now and then increase to 100 mg BID starting in AM.
-Cont usual dose of Eliquis 5 mg BID
HPI: Sruthi has a history of permanent atrial fibrillation, left atrial appendage thrombus, chronic Eliquis, chronic diastolic CHF, hypothyroidism, moderate MR, hyperlipidemia, lupus, hypertension. She is in [place] for part of the year. She was
seen in our office in May 2023 then followed up at [place] with Dr. Rider. She has been well until last night when she noticed shortness of breath and gurgling. She sat up and felt better. She then had more shortness of breath and noted her
heart rate to be in the 130s today came to the ER. She is admitted for acute diastolic CHF. She has had a 3 to 4 pound weight gain in the past week. She feels her normal weight is approximately 165 pounds.
Progress Note - Physiotherapy Practice Manager
Subjective
Date of Service: February 03, 2024
Still SOB
Objective
Labs:
02/03/24 07:28
04/29/24 07:28
Labs
Hgb 14.2 g/dL (12.0-16.0) 02/03/24 07:28
Hct 42.4 % (37.0-47.0) 02/03/24 07:28
Plt Count 233 10^3/uL (130-400) 02/03/24 07:28
PT 18.6 Sec (11.4-14.6) H 02/01/24 11:47
INR 1.57 02/01/24 11:47
APTT 36.6 Sec (23.4-35.0) H 02/01/24 11:47
Sodium 133 mmol/L (135-145) L 02/03/24 07:28
Potassium 3.8 mmol/L (3.5-5.1) 02/03/24 07:28
BUN 35 mg/dl (7-17) H 02/03/24 07:28
Creatinine 0.9 mg/dL (0.6-1.0) 02/03/24 07:28
Glucose 87 mg/dl (70-99) 02/03/24 07:28
Troponins
02/01/24 02/01/24
11:47 17:26
Troponin I < 0.012 < 0.012
Vital Signs and I&O:
Vital Signs
Temp Pulse Resp BP Pulse Ox
97.9 F 91 18 116/70 96
02/03/24 11:00 02/03/24 11:00 02/03/24 11:00 02/03/24 11:00 02/03/24 11:00
Vital Signs
Temp Pulse Resp BP Pulse Ox
97.9 F 91 18 116/70 96
02/03/24 11:00 02/03/24 11:00 02/03/24 11:00 02/03/24 11:00 02/03/24 11:00
Intake & Output
02/01/24 02/02/24 02/03/24 02/04/24
06:59 06:59 06:59 06:59
Intake Total 540 / 540 1200 / 1200 360 / 360
Output Total 350 / 350
Balance 190 / 190 1200 / 1200 360 / 360
Physical Exam
Physical Exam
GEN: AAOx3
HEENT: EOMI
LUNGS: No audible wheeze
CV: Afib on tele
ABD: ND
EXT: +1 edema B/L LE
NEURO: Gross non-focal
SKIN: No rash
--- NOTE | 2024-02-03 14:42 | PN.CDI ---
CDI
- -
CDI:
Physician Documentation Request
Admit Date: 02/01/24 15:04
Dear Doctor Shanna,
Pt. admitted with heart failure exacerbation.
02/02 Hospitalist PN: 'paroxysmal A.fib RVR-- possibly exacerbated by infection--cont rate control and eliquis '
02/02 Pharmaceutical Laboratory Technician note: 'Permanent Afib, Chronic Eliquis.'
If possible, please provide further specificity regarding atrial fibrillation, such as:
Permanent atrial fibrillation - when a decision has been made to accept the presence of AF and there is no further attempt to restore or maintain sinus rhythm
Paroxysmal atrial fibrillation - terminates spontaneously or with intervention within 7 days of onset
Other - please specify
Use of terms such as suspected, likely, concern for, or probable (associated with a specific diagnosis that is being evaluated, monitored, or treated as if it exists) are acceptable and can be coded in the inpatient setting, when documented at the
time of discharge.
Thank you,
Viviane Barker RN, BSN
CDI Specialist
Available via [place] text
Please use your independent medical judgment in providing your response.
[2024-02-03 15:07] VITALS: BP 116/74
--- NOTE | 2024-02-03 17:03 | W.PN.PUL3 ---
Today's Communication / Plan
-
Discontinue antibiotics
No plans for thoracentesis at this time follow clinically
Continue rate control measures
Consider repeat chest x-ray as outpatient in 1 month, can follow-up with local pulmonary or [place] [facility]
Discontinue inhalers
Assessment
-
Assessment: Patient is an 83-year-old female with a past medical history of diastolic heart failure, gout, hypertension, hyperlipidemia, paroxysmal A-fib on Eliquis, hypothyroidism, history of right-sided breast cancer (DCIS), and history of
cardiac arrest (April 2023) who presents with shortness of breath and rapid heart rate that began on morning of admission. In the ER she was tachycardic to 144, tachypneic to 22, BP 154/107, she was afebrile to 98 �F and SpO2 97% on room air. Labs
showed an elevated BUN of 30, total bilirubin of 1.5, increased ALP of 231, proBNP of 3910 and she was COVID antigen negative. Blood cultures were collected and she was flu A/B swab negative. CXR was performed showing right-sided midlung/lower
lobe scarring and a LLL pneumonia with suspected pleural effusion. Patient given Lasix in the ER in addition to antibiotics with doxycycline and ceftriaxone, and admitted to telemetry under hospitalist service. Patient continues to be on Lasix as
well as antibiotics and CXR performed again today shows persistent, albeit improved left-sided pleural effusion with suggested loculations. Pulmonary now consulted for additional management/recommendations.
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
chronic LBP, right shoulder rotator cuff tear, history of gout, macular degeneration, history of cardiac arrest while on a cruise ship (April 2023)
Impression:
#Left-sided pleural effusion with suspected loculated component; cannot rule out underlying pneumonia
#Acute HFpEF exacerbation
#Hx of LAUREN thrombus
#Permanent A-fib on Eliquis
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
#Personal history of COVID-19
#History of RA + SLE
#Hypothyroidism
Plan:
At this time, patient is objectively and subjectively improved
Chest exam with decreased breath sounds left base, but patient appears to be nontoxic
Reviewed CT chest at length. There is compressive atelectasis left base, small pleural effusion. I cannot appreciate any obvious parenchymal abnormality
Moving forward
Given subjective improvement, will hold off on thoracentesis
Tachycardia is noted. Cardiology is following. Rate control continues
No leukocytosis, no cough, no fevers
Will follow left pleural effusion clinically at this time
Incentive spirometry, out of bed to chair
Discontinue inhaler therapy. She admits to not taking her inhalers consistently
Discontinue antibiotics. Do not suspect acute infectious pneumonitis
Patient with history of rheumatoid arthritis/lupus
Would recommend outpatient follow-up with regards to left pleural effusion and pursue thoracentesis as clinically indicated
DVT prophylaxis: On Eliquis 5 mg twice a day
Obtain medical records from her private edge gluer, Dr. Haney from [facility]
Pulmonary service will continue to follow along.
Disposition efforts
Data:
CXR 02-02-2024:
Moderate loculated left pleural effusion. Improved. Underlying pneumonia not excluded.
Subjective Data
-
Date of Service:
Date of Service: February 03, 2024
Subjective:
Patient is without complaints. She is feeling well, denies shortness of breath, chest pain, cough. She was noted to have tachycardia, beta-arpit dose increased.
Objective Data
Data Reviewed
Vital Signs / I&O / Oxygen:
Vital Signs
Temp Pulse Resp BP Pulse Ox
97.8 F 91 18 116/74 96
02/03/24 15:07 02/03/24 16:42 02/03/24 15:07 02/03/24 16:42 02/03/24 15:07
Intake and Output
02/02/24 02/03/24 02/04/24
06:59 06:59 06:59
Intake Total 540 / 540 1200 / 1200 360 / 360
Output Total 350 / 350
Balance 190 / 190 1200 / 1200 360 / 360
SaO2 96
Nasal Cannula flow liters per 2
minute
Physical Exam
General: Comfortable
HEENT: Normocephalic and Anicteric
Cardiovascular: S1-S2, Regular Rhythm, Murmur (n) and Rub (n)
Respiratory: Wheeze (n), Crackles (n), Rhonchi (n), Non-Labored Respirations and Other (Decreased left base)
GI: Soft, Non Distended and Non Tender
Neurology: Awake, Alert and No Motor Deficits
Skin: Cyanosis (n), Jaundice (n) and Rash (n)
Labs/Micro/Reports
Lab Data
02/03/24 07:28
02/03/24 07:28
Microbiology
02/01/24 13:03 Blood/Venous Blood Culture - Preliminary
No Growth in 48 hours- Final report to follow
02/01/24 13:03 Blood/Venous Blood Culture - Preliminary
No Growth in 48 hours- Final report to follow
02/02/24 21:58 Urine Streptococcus pneumoniae Antigen (M - Final
Negative for Streptococcus pneumoniae antigen.
A negative result does not exclude infection with
Streptococcus pneumoniae. Clinical correlation is
recommended.
02/02/24 10:52 Urine Legionella Urinary Antigen - Final
Negative for Legionella pneumophila Serogroup 1 antigen.
A negative result does not rule out the possiblity of
Legionella infection due to other serogroups or species of
Legionella. Clinical correlation is recommended.
02/01/24 13:03 Nasal Swab Influenza Types A & B (VIRAJ) - Final
Negative for Influenza A & B, NAAT
Negative results must be combined with clinical observations
and patient history.
Nucleic Acid Amplification test (NAAT)performed on the
[employer] platform.
[2024-02-03 19:10] VITALS: BP 134/76
[2024-02-03 23:10] VITALS: BP 121/72
[2024-02-04 03:05] VITALS: BP 125/76
[2024-02-04] MEDS: SYNTHROID 112 MCG PO (06:15)
[2024-02-04 07:00] VITALS: BP 141/74
[2024-02-04 07:22] LABS: Hematocrit 43.5 % (37.0-47.0); Hemoglobin 14.7 g/dL (12.0-16.0); Mean Corp Hgb Conc. 33.8 g/dL (33.0-37.0); Mean Corpuscular Hgb 30.2 pg (27.0-31.0); Mean Corpuscular Volume 89.5 fL (81.0-99.0); Mean Platelet Volume 9.3 fL (7.4-10.4); Platelet Count 230 10^3/uL (130-400); Red Blood Cell Count 4.86 10^6/uL (4.20-5.40); Red Cell Dist. Width 14.6 % (11.5-14.5); White Blood Cell Count 5.8 10^3/uL (4.8-10.8)
[2024-02-04] MEDS: ALDACTONE 12.5 MG PO (07:25)
[2024-02-04] MEDS: CRESTOR 5 MG PO (07:25)
[2024-02-04] MEDS: JARDIANCE 10 MG PO (07:25)
[2024-02-04] MEDS: ELIQUIS 5 MG PO (07:26)
[2024-02-04] MEDS: TOPROL XL 100 MG PO (07:26)
[2024-02-04] MEDS: OCUVITE SOFTGEL 1 CAP PO (07:26)
[2024-02-04] MEDS: ZYLOPRIM 100 MG PO (07:27)
[2024-02-04] MEDS: LASIX 40 MG IV (07:27)
[2024-02-04 08:16] LABS: Blood Urea Nitrogen 32 mg/dl (7-17); Calcium 9.5 mg/dl (8.4-10.2); Carbon Dioxide 24 mmol/L (22-30); Chloride 101 mmol/L (98-107); Estimated Creatinine Clearance 50 ml/min; Glucose 82 mg/dl (70-99); Sodium 137 mmol/L (135-145); eGFR > 60.00
[2024-02-04 09:20] LABS: Potassium 3.5 mmol/L (3.5-5.1)
--- NOTE | 2024-02-04 11:41 | W.PN.CARDCBS ---
Addendum entered and electronically signed by Acosta Waldron MD 02/04/24 21:12:
Patient interviewed and examined, note reviewed, agree with findings and additions as outlined.
Allergies, current meds, outpatient meds, PMH/PSH/SH/FH: Reviewed
ROS: No new additions
114/72, pulse 85, respiratory rate 20, afebrile
Head neck exam unremarkable, lungs clear, irregular rate and rhythm with soft systolic murmur at apex and left sternal border, JVD okay, abdomen benign, extremities without much edema
Telemetry reviewed: Controlled on higher dose metoprolol, BP is acceptable
Impression:
Acute HFrEF
Moderate MR by echo 07/01/19 and September 2023
Status post possible PEA arrest on a cruise ship April 2023 and also had COVID, UTI and CHF
Permanent Afib
Chronic Eliquis
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
Lupus
HTN
Hypothyroidism
Plan:
Okay for discharge.
She has an appointment with her field appraiser on Saturday
Original Note:
Today's Communication / Plan
-
Patient was given paper copies of cardiology notes to take along with her to her primary field appraiser's office on Saturday
Cont higher dose Toprol XL 100 mg BID
Cont Lasix 60 mg PO daily
Impression / Plan
-
Station Repairer: Dr. Mitch Garcia [facility] [phone] open 9-4:30
[facility]
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
Impression:
Acute HFrEF
Moderate MR by echo 07/01/19 and September 2023
Status post possible PEA arrest on a cruise ship April 2023 and also had COVID, UTI and CHF
Permanent Afib
Chronic Eliquis
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
Lupus
HTN
Hypothyroidism
Lexiscan sestamibi stress test 05/30/23: Small fixed mild anteroseptal defect consistent with soft tissue attenuation�intermediate risk stress test due to pharmacologic protocol
4-day monitor February 2021 with permanent atrial fibrillation with mean heart rate of 85
Echo 07/01/19: [facility]: EF 45%, mild AI/, mod MR
Echo 08/12/20: Ejection fraction 50 to 55%, moderate MR, mild AI, moderate TR PA systolic of 56 mmHg
Echo June 2021: Ejection fraction 60 to 65%, mild to moderate TR with PA systolic of 30 mmHg and moderate MR
Echo 02/06/23: Ejection fraction 50 to 55%, LVH, no significant mitral valve disease
KATARINA 05/06/23: Ejection fraction 60 to 65%, spontaneous contrast left atrial appendage which was poorly visualized, mild MR, mild TR
Echo 09/16/23: Ejection fraction 60%, moderate MR, moderate TR, moderate pulm hypertension with PA systolic of 57 mm Hg
Plan:
-Weight is down 6 lbs if the ER admission weight is correct. Regardless patient feels symptomatically improved with decreased edema and less SOB.
-Patient was taking Lasix 40 mg daily PRN prior to admission and will be discharged to home on Lasix 60 mg PO daily.
-Small to moderate left pleural effusion noted and Pulmonology following. No immediate plans for IR intervention
-Toprol XL increased to 100 mg BID this admission and HR control is better. Patient thinks she feels better with slower HR. Afib is known to be permanent. Patient report that she has been on even higher doses of Toprol XL in the past. Recommend
continuing Toprol XL 100 mg BID upon discharge to home.
-Cont usual dose of Eliquis 5 mg BID
-Patient says that she is scheduled to see her primary field appraiser at [place] this Saturday at 8 AM.
HPI: Sruthi has a history of permanent atrial fibrillation, left atrial appendage thrombus, chronic Eliquis, chronic diastolic CHF, hypothyroidism, moderate MR, hyperlipidemia, lupus, hypertension. She is in [place] for part of the year. She was
seen in our office in May 2023 then followed up at [place] with Dr. Rider. She has been well until last night when she noticed shortness of breath and gurgling. She sat up and felt better. She then had more shortness of breath and noted her
heart rate to be in the 130s today came to the ER. She is admitted for acute diastolic CHF. She has had a 3 to 4 pound weight gain in the past week. She feels her normal weight is approximately 165 pounds.
Progress Note - Station Repairer
Subjective
Date of Service: February 04, 2024
She feels overall better compared to admission
Objective
Labs:
02/04/24 06:25
02/04/24 06:25
Labs
Hgb 14.7 g/dL (12.0-16.0) 02/04/24 06:25
Hct 43.5 % (37.0-47.0) 02/04/24 06:25
Plt Count 230 10^3/uL (130-400) 02/04/24 06:25
PT 18.6 Sec (11.4-14.6) H 02/01/24 11:47
INR 1.57 02/01/24 11:47
APTT 36.6 Sec (23.4-35.0) H 02/01/24 11:47
Sodium 137 mmol/L (135-145) 02/04/24 06:25
Potassium 3.5 mmol/L (3.5-5.1) 02/04/24 06:25
BUN 32 mg/dl (7-17) H 02/04/24 06:25
Creatinine 0.8 mg/dL (0.6-1.0) 02/04/24 06:25
Glucose 82 mg/dl (70-99) 02/04/24 06:25
Troponins
02/01/24 02/01/24
11:47 17:26
Troponin I < 0.012 < 0.012
Vital Signs and I&O:
Vital Signs
Temp Pulse Resp BP Pulse Ox
97.7 F 95 18 141/74 98
02/04/24 07:00 02/04/24 07:00 02/04/24 07:00 02/04/24 07:00 02/04/24 07:30
Vital Signs
Temp Pulse Resp BP Pulse Ox
97.7 F 95 18 141/74 98
02/04/24 07:00 02/04/24 07:00 02/04/24 07:00 02/04/24 07:00 02/04/24 07:30
Intake & Output
02/02/24 02/03/24 02/04/24 02/05/24
06:59 06:59 06:59 06:59
Intake Total 540 / 540 1200 / 1200 1320 / 1320
Output Total 350 / 350
Balance 190 / 190 1200 / 1200 1320 / 1320
Physical Exam
Physical Exam
GEN: AAOx3
HEENT: EOMI
LUNGS: No audible wheeze
CV: Afib on tele
ABD: ND
EXT: +1 edema B/L LE
NEURO: Gross non-focal
SKIN: No rash
--- NOTE | 2024-02-04 12:10 | CM ---
Patient seen bedside, reports no needs. IMM reviewed, signed, placed in chart. Patient reports her son will provide transportation home. CM will continue to follow for discharge planning needs.
Plan; home no needs.
[2024-02-04 13:11] VITALS: BP 114/72
--- NOTE | 2024-02-04 13:37 | W.DCSUMMARY ---
Discharge Summary
Discharge Data
Date of Admission: 02/01/24
Date of Discharge: 02/04/24
Total time spent discharging patient (in min): 40
-
Pending Results: No
Hospital Course
83-year-old female with a known history of permanent atrial fibrillation left atrial appendage thrombus and chronic Eliquis therapy other comorbidities included hypothyroidism moderate MR hyperlipidemia and lupus and hypertension he is on chronic
Eliquis therapy as noted she presented with shortness of breath and congestion and note noted her heart rate to be in the 130s and came to the emergency room and was found to be in acute diastolic heart failure based on initial presentation and she
had also gained 4 pounds of body weight.
She was admitted to medical service with cardiology consultation and also pulmonary consultation in relation to the appearance of a new onset left pleural effusion. There are some question of loculation on initial radiologic imaging and she
underwent a CT scan of the chest that did not show any evidence of loculation and actually pleural effusions started to respond to IV diuresis initiated on admission she continued to have rapid ventricular response atrial fibrillation that warranted
increase in her dosing of metoprolol XL from 50 to 100 mg twice a day she had been on this dose in the prior past however that dosage had been discontinued. With improvement with in diuresis and rate control of the effusion pulmonary service felt
there is no need for intervention such as interventional radiology for thoracentesis is agreed that the patient's prior dosing of 40 mg of Lasix taken only on a as needed basis will be discontinued in favor of a 60 mg dose daily and continued rate
control with metoprolol XL 100 mg twice daily she is lost 6 pounds of weight since her admission and symptomatically is improved she still mystified as she cannot relate or feel when her heart rates are elevated with her atrial fibrillation and I
did recommend to her obtaining an Apple Watch so she can better manifest some assessment of this. Cardiology supplied the patient with paper copies of the cardiology notes to take along with her to her primary electrical products engineer office on Saturday at .
[place] with Dr. Rider
Discharge Plan
-
Patient Disposition: Home (Routine Discharge)
Discharge Diagnosis/Procedures: Permanent atrial fibrillation with rapid ventricular response
Left-sided pleural effusion
Condition: Good
Diet: As tolerated and 2 Gram Sodium
Activity: No restrictions
Additional Activity: Should have repeat chest x-ray as outpatient in 1 month and follow-up with your local document management analyst or at [facility] [facility] as prior.
Driving Restrictions: As prior to admission
Specialty Instructions: Weigh Daily- Call MD for wt gain/loss 3 lbs overnight/5 lbs in 1 week
Referrals:
Irene Cazares MD [Family Provider] -
Jamari Palma MD [Active] -
(4-6 weeks
Repeat CXR and pulm f/u)
Norman Rider MD [Non-Admitting Privileges] - 02/07/24 8:00 am
Prescriptions:
New
metoprolol succinate 100 mg Tablet Extended Release 24 Hr
100 mg PO BID Qty: 60 0RF
furosemide [Lasix] 40 mg tablet
60 mg PO DAILY Qty: 30 0RF
spironolactone 25 mg Tablet
12.5 mg PO DAILY Qty: 30 0RF
Continued
biotin 5 MG capsule
5 mg PO DAILY
acetaminophen [Tylenol Extra Strength] 500 MG tablet
1,000 mg PO Q6HPRN PRN (Reason: mild pain)
cholecalciferol (vitamin D3) 1,000 UNITS tablet
1,000 units PO DAILY
PreserVision AREDS-2 1 EACH capsule
1 ea PO BID
allopurinol 100 mg Tablet
100 mg PO DAILY
levothyroxine [Synthroid] 112 mcg Tablet
112 mcg PO DAILY
rosuvastatin [Crestor] 5 mg Tablet
5 mg PO DAILY
Eliquis 5 mg Tablet
5 mg PO BID
Jardiance 10 mg Tablet
10 mg PO DAILY
Incruse Ellipta 62.5 mcg/actuation Blister With Device
1 inh INHALATION R DAILYPRN PRN (Reason: sob)
Discontinued
furosemide 40 MG tablet
40 mg PO DAILYPRN PRN (Reason: fluid )
metoprolol succinate 100 MG tablet extended release 24 hr
50 mg PO BID
Discharge Orders:
Discharge Patient (As Directed); Ordered 02/04/24
Ordered By: Larry Otero
Discharge Date and Time
Print Language: CZECH
--- NOTE | 2024-02-04 14:11 | W.DS.TRANS ---
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
-
Discharge Instructions:
Sleep Apnea Risk Intermediate
Discharge Diagnosis/Procedures Permanent atrial fibrillation with rapid
ventricular response
Left-sided pleural effusion
Diet As tolerated,2 Gram Sodium
Activity No restrictions
Additional Activity Should have repeat chest x-ray as outpatient in
1 month and follow-up with your local
lead mechanic or at [facility] as prior.
Driving Restrictions As prior to admission
Specialty Instructions Weigh Daily
Instructions:
Stand-Alone Forms:
Changes to Home Medications: Yes
Discharge Medications:
DC Medications w/original date entered in [employer]
acetaminophen 500 mg tablet (Tylenol Extra Strength) 1,000 mg PO Q6HPRN PRN mild pain 10/08/19
biotin 5 mg capsule 5 mg PO DAILY 10/08/19
cholecalciferol (vitamin D3) 25 mcg (1,000 unit) tablet 1,000 units PO DAILY 10/08/19
vit C 250 mg-vit E 90 mg-zinc 40 mg-copper 1 [id number] capsule (PreserVision AREDS-2) 1 ea PO BID 10/08/19
allopurinol 100 mg tablet 100 mg PO DAILY 02/01/24
apixaban 5 mg tablet (Eliquis) 5 mg PO BID 02/01/24
empagliflozin 10 mg tablet (Jardiance) 10 mg PO DAILY 02/01/24
levothyroxine 112 mcg tablet (Synthroid) 112 mcg PO DAILY 02/01/24
rosuvastatin 5 mg tablet (Crestor) 5 mg PO DAILY 02/01/24
umeclidinium 62.5 mcg/actuation blister powder for inhalation (Incruse Ellipta) 1 inh inhalation R DAILYPRN PRN sob 02/01/24
furosemide 40 mg tablet (Lasix) 60 mg (1.5 x 40 mg) PO DAILY #30 tabs 02/04/24
metoprolol succinate 100 mg tablet,extended release 24 hr 100 mg PO BID #60 tabs 02/04/24
spironolactone 25 mg tablet 12.5 mg (1/2 x 25 mg) PO DAILY #30 tabs 02/04/24
Home Medication Changes
furosemide 40 mg tablet (Lasix) 60 mg (1.5 x 40 mg) PO DAILY #30 tabs 02/04/24
metoprolol succinate 100 mg tablet,extended release 24 hr 100 mg PO BID #60 tabs 02/04/24
spironolactone 25 mg tablet 12.5 mg (1/2 x 25 mg) PO DAILY #30 tabs 02/04/24
Pending Results: No
--- NOTE | 2024-02-06 06:36 | ED.GENMED ---
History of Present Illness
General
Chief Complaint: Heart Rate Problem
Source: patient
Time Seen by Provider: 02/01/24 11:28
Travel History
Have you had any contact with someone who has COVID-19?: No
Do you have any symptoms of coronavirus? Fever > 100 degrees, chills, cough, shortness of breath, sore throat, loss of taste or smell, muscle aches, or headache?: No
History of Present Illness
History of Present Illness:
83-year-old female presents with shortness of breath progressive over a week. Some fluctuating weight. Ongoing fatigue. No chest pain no fever. Symptoms are moderate in nature
Past History
Past History
ED Past Medical History: Arrthythmia (Atrial fib), CAD, HTN, Hypothyroidism and Other (Diastolic heart failure, aortic stenosis); Negative Asthma, Hypercholesterolemia or NIDDM
ED Past Surgical History: Cholecystectomy
Social History
Tobacco: Former smoker
Alcohol: None
Drug: None
Personal:
Living: with family
Review of Systems
Review of Systems
All Other Systems: Not applicable
Constitutional: Denies fever
Cardiac: Denies chest pain
ABD/GI: Reports no symptoms
Phy Exam
Physical Exam
Physical Exam:
GENERAL: Alert. No distress
EYE: Orbits normal.
NECK: Supple, no significant adenopathy.
ENT: Pharynx without erythema
CARDIAC: Irregular irregular. Tachycardic
LUNGS: Mild basilar rhonchi. Decreased breath sounds left base
ABDOMEN: Soft, without focal tenderness or distention
NEUROLOGICAL: Alert and oriented , grossly non-focal
SKIN: Warm and dry, no rash or lesion, no discoloration, skin intact.
MUSCULOSKELETAL: No edema,no deformity.Good color
PSYCH: Normal and appropriate interaction.
Course
Orders/Labs/Results
Orders:
Orders
02/01/24 Lunch
Cholesterol Lowering
At Your Request: Limited Participation
Cholesterol Lowering: Sodium, 2 Gram
02/01/24 11:17
Electrocardiogram (*1) Urgent
Reason for Study: Chest Pain
EKG- Treatment ONCE
02/01/24 11:39
IV Insert/Care/Rem.- Treatment PRN
O2 Therapy [RESP] Stat
Titrate/Wean O2 to maintain O2 sat greater than (%): 94
Pulse Ox/cont/shift [RESP] Stat
Quantity: 1
02/01/24 11:40
Cardiac Monitoring- Treatment ONCE
CR Chest Portable - 1 View Urgent
Comment:
Reason For Exam: sob
Reason Study Needs to be Portable: Unable to Transport
02/01/24 11:47
Complete Blood Count/With Diff Urgent
Comprehensive Metabolic Panel Urgent
NT-proBNP Urgent
PTT Urgent
Prothrombin Time Urgent
Troponin I Urgent
02/01/24 12:06
Furosemide [Lasix] 40 mg IV NOW STA
02/01/24 12:07
Diltiazem 125 mg/125 ml Nss [Cardizem] 125 mg in 125 ml IV NOW
Initial dose in mg/hr, then titrate:: 5
Titrate to keep:: Heart rate 80-100 bpm
Titrate by mg/hr:: 5 mg/hr
Frequency of titrations (minutes):: 15
Maximum dose in mg/hr:: 15
Diltiazem HCl [Cardizem] 5 mg IV NOW STA
02/01/24 12:29
CefTRIAXone [Rocephin] 1,000 mg IV NOW STA
02/01/24 12:43
Doxycycline Hyclate [Vibramycin] 100 mg 0.9% Sodium Chloride 250 ml [Nss] 250 ml IV NOW
02/01/24 13:03
COVID-19 Antigen Urgent
Source: Nasal Swab
Lactic Acid Q4H
Comment: CANCEL 2nd LACTIC ACID IF 1st LACTIC ACID IS LESS THAN 2
Blood Culture Q30M
ALISIA Source: Blood/Venous
Specimen Description:
Blood Culture Q30M
ALISIA Source: Blood/Venous
Specimen Description:
Influenza A+B Rapid Molecular Urgent
ALISIA Source: Nasal Swab
Specimen Description:
02/01/24 14:40
Admit/Transfer Patient As Directed
Co-Sign Provider:
Level of Care: Inpatient admission
Assign to:: Telemetry
Physician / Group: Ankita/hospitalist
Diagnosis: LLL PNA, Afib RVR
Reason for Telemetry: Arrhythmia
Date to Stop Telemetry: 02/04/24
Time to Stop Telemetry: 11:00
Reason for Hospitalization: LLL PNA, Afib RVR
Expected length of stay greater than two midnights?: Yes
ELOS- Estimated Length of Stay in days: 3
I certify the patient meets the requirements for IP care: Yes
02/01/24 14:42
Code Status As Directed
Resuscitation Status: Full Code
02/01/24 16:53
Acetaminophen [Tylenol] 1,000 mg PO Q6HPRN PRN
Ipratropium/Albuterol Sulfate [Duoneb] 3 ml INH R Q4HPRN PRN
02/01/24 16:53
CARDIOLOGY CONSULT Routine
Consulting Provider: Khadar Portillo
Was physician already notified: Yes
Reason for consult: a.fib RVR CHF
HF DIETARY CONSULT Routine
HF EDUCATOR CONSULT Routine
Comment:
Legionella Urinary Antigen Routine
ALISIA Source: Urine
Specimen Description:
Activity As Directed
Activity Level: Out of Bed-Early Mobility
Activity As Directed
Activity Level: With Assistance
Intake/ Output As Directed
Frequency: Per unit guidelines
Intake/ Output As Directed
Frequency: q12h
Patient Education As Directed
Type: CHF folder
Comment: give on admission. Document in Interdisciplinary Education record
Pneumatic Compression Sleeves As Directed
Type: Knee high
Sleep Apnea Assessment by RN As Directed
Comment:
Physician Instructions:
Vital Signs As Directed
Frequency: Other
Additional Instructions:: Q12 or per unit guidelines if more frequent.
Weight As Directed
Frequency: Daily
Type of Scale: Standing Scale
Comment: Daily morning weight. If unable to stand, use balanced bed scale.
Weight As Directed
Frequency: Once
Type of Scale: Standing Scale
Comment: Upon Admission. If unable to stand, use balanced bed scale.
Weight As Directed
Frequency: Once
Comment: on admission
O2 Therapy [RESP] Routine
Nasal Cannula Liter Flow: 2 LPM
Titrate/Wean O2 to maintain O2 sat greater than (%): 94
Pulse Ox/cont/shift [RESP] Routine
Quantity: 1
Pulse Ox/cont/shift [RESP] Routine
Quantity: 1
Special Instructions: Daily pulse oximetry at rest. If greater than 92% at rest also obtain pulse oximetry
while ambulating as tolerated.
Pt Eval And Treat Routine
Activity Level: With Assistance
DX Deep Vein Thrombosis Video Routine
02/01/24 17:26
Troponin I Q6H
Comment: at admission & every 6 hours x 2 (3 total), ECG to be done with each level
02/01/24 20:00
Apixaban [Eliquis] 5 mg PO BID
Metoprolol Xl [Toprol Xl] 50 mg PO BID
Vit C/Vit E/Lutein/Min/[place]-3 [Ocuvite Softgel] 1 cap PO BID
02/01/24 22:00
Doxycycline Hyclate [Vibramycin] 100 mg 0.9% Sodium Chloride 250 ml [Nss] 250 ml IV Q12
02/02/24 06:00
Levothyroxine [Synthroid] 112 mcg PO DAILY@0600
CR Chest - 2 Views IN AM
Comment:
Reason For Exam: heart failure
02/02/24 07:51
Complete Blood Count/No Diff IN AM
Comprehensive Metabolic Panel IN AM
Magnesium IN AM
TSH Reflex To Free T4 IN AM
02/02/24 08:00
Allopurinol [Zyloprim] 100 mg PO DAILY
Empagliflozin [Jardiance] 10 mg PO DAILY
Furosemide [Lasix] 40 mg IV BID AT 0800,1600
Rosuvastatin Calcium [Crestor] 5 mg PO DAILY
Tiotropium Gibson 2.5 Mcg [Spiriva Respimat 2.5 Mcg] 2 puff INH R DAILY
02/02/24 12:00
CefTRIAXone [Rocephin] 1,000 mg IV Q24H
02/04/24 11:00
DC Protocol for Telemetry ONCE
Abnormal Lab Results
02/01/24
11:47
Hct 47.9 H %
(37.0-47.0)
MCHC 32.4 L g/dL
(33.0-37.0)
RDW 15.2 H %
(11.5-14.5)
Absolute Monos (auto) 0.7 H 10^3/uL
(0.1-0.6)
Lymphocytes % 16.2 L %
(20.5-51.1)
PT 18.6 H Sec
(11.4-14.6)
APTT 36.6 H Sec
(23.4-35.0)
BUN 30 H mg/dl
(7-17)
Total Bilirubin 1.5 H mg/dl
(0.2-1.3)
AST 39 H U/L
(14-36)
Alkaline Phosphatase 231 H U/L
(38-126)
Total Protein 8.3 H g/dl
(6.3-8.2)
02/01/24 11:47
02/01/24 11:47
Vital Signs
Initial and Last Documented VS:
Initial Vital Signs
Temp Pulse Resp BP Pulse Ox
98.0 F 144 22 154/107 97
02/01/24 11:10 02/01/24 11:10 02/01/24 11:10 02/01/24 11:10 02/01/24 11:10
Last Documented Vital Signs
Temp Pulse Resp BP Pulse Ox
97.8 F 85 20 114/72 99
02/04/24 13:11 02/04/24 13:11 02/04/24 13:11 02/04/24 13:11 02/04/24 13:11
*Radiology
Radiology exam reviewed: preliminary read by ED provider (Possible left lower lobe consolidation)
*Pulse Oximetry
Patient hypoxic: no
*EKG
Interpreted by ED Provider?: Yes
Interpretation: abnormal
Comparison EKG: changes noted
Heart Rate: 127
Rate: tachycardiac
Rhythm: a-fib
[place]: left axis deviation
Interval: normal interval
QRS Pattern: right bundle branch block (inc)
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
Rate: tachycardiac
Interpretation: abnormal
Heart Rate: 125
Rhythm: a-fib
*Critical Care Note
Total Time (30-74mins, 75-104mins- exclusive of procedures): Not Applicable
Data Reviewed
Review of Other/Old Records Reveals: Labs, Records and Testing
ED Attending Note
-
Portions of this chart may have been created with voice recognition software.� Occasional wrong word or��sound alike� substitutions may have occurred due to the inherent limitations of voice recognition software.
Discharge Plan
Departure
Patient Disposition: Admit
Date of Disposition: 02/01/24
Time of Disposition: 12:31
Presentation/result/management discussed w/ accepting MD/DO: Hospitalist
Discharge Problem:
Respiratory distress, Left lower lobe pneumonia, Atrial fibrillation/RVR
Interventions
Interventions:
*Risk Screen - Suicide Last Done: 02/01/24 11:10
*General Assessment Last Done: 02/01/24 11:10
*Neglect/Abuse Screening Last Done: 02/01/24 11:10
ED- Fall Risk Assessment Last Done: 02/01/24 11:40
*ED COVID-19 Vaccine History Last Done: 02/01/24 11:40
*Nursing Disposition Last Done: 02/01/24 16:57
ED- Cardiac Assessment Last Done: 02/01/24 11:40
ED- Pulmonary Assessment Last Done: 02/01/24 11:40
Discharge Date and Time
Discharge Date/Time: 02/01/24 16:58
== END 2024-02-04 14:04 | disposition home or self-care (01) | DRG 291 ==
LOC: 4 WEST ACU 15:04
PROVIDERS: Internal Medicine; ADMITTING PHYSICIAN Internal Medicine; ATTENDING PHYSICIAN Internal Medicine; CONSULT PHYSICIAN Internal Medicine Cardiovascular Disease; CONSULT PHYSICIAN Internal Medicine Critical Care Medicine; EMERGENCY PHYSICIAN Emergency Medicine; FAMILY PHYSICIAN Internal Medicine
DX: I11.0 Hypertensive heart disease with heart failure (principal); I50.43 Acute on chronic combined systolic (congestive) and diastolic (congestive) heart failure; J18.9 Pneumonia, unspecified organism; I48.21 Permanent atrial fibrillation; E87.1 Hypo-osmolality and hyponatremia; I27.20 Pulmonary hypertension, unspecified; Z86.74 Personal history of sudden cardiac arrest; H35.30 Unspecified macular degeneration; Z79.01 Long term (current) use of anticoagulants; Z87.891 Personal history of nicotine dependence; I51.3 Intracardiac thrombosis, not elsewhere classified; E03.9 Hypothyroidism, unspecified; E78.00 Pure hypercholesterolemia, unspecified; Z11.52 Encounter for screening for COVID-19
CPT/HCPCS: 71045; 71046; 71250; 80048; 80053; 83605; 83735; 83880; 84100; 84145; 84443; 84484; 85025; 85027; 85610; 85730; 87040; 87449; 87502; 87811; 87899; 93005; 94760; 96365; 96375; 97162; 99285; 99406

== ENCOUNTER → 2024-09-20 12:28 | Outpatient (REF) | payer MEDICARE, SELFPAY | LOC: MRI 3T 12:28 | PROVIDERS: ATTENDING PHYSICIAN Internal Medicine Rheumatology | DX: M19.011 Primary osteoarthritis, right shoulder (principal); M25.511 Pain in right shoulder; M32.9 Systemic lupus erythematosus, unspecified | CPT/HCPCS: 73221 ==

== ENCOUNTER → 2025-02-18 10:05 | Outpatient (REF) | payer MEDICARE, SELFPAY | LOC: HWRAD 10:05 | PROVIDERS: ATTENDING PHYSICIAN Specialist; FAMILY PHYSICIAN Student in an Organized Health Care Education/Training Program | DX: M25.511 Pain in right shoulder (principal) | CPT/HCPCS: 73200 ==

== ENCOUNTER 2025-03-16 22:21 | Emergency (ER) | payer MEDICARE, SELFPAY ==
[2025-03-16 22:25] VITALS: BP 154/124
[2025-03-16 22:55] VITALS: BMI 30.1
[2025-03-16 23:00] VITALS: BP 111/65
[2025-03-16 23:28] VITALS: BP 105/56
[2025-03-16] MEDS: PERCOCET 5/325 1 TABLET PO (23:42)
[2025-03-16 23:46] VITALS: BP 115/75
[2025-03-17] VITALS: BP 124/56
--- NOTE | 2025-03-17 00:21 | ED.MUSCINJ ---
HPI-Injury
General
Chief Complaint: Fall
Source: patient
Exam Limitations: none
Time Seen by Provider: 03/16/25 22:36
Nursing documentation reviewed up to this point in time: agreed with
History of Present Illness-Injury
Is this injury a work related problem?: No
Is pt an associate of [facility]?: No
Initial Injury comments:
Patient states she fell in [place] today. Landed on her right side. Denies hitting her head. No LOC. Complains of pain to her right knee. TO ED accompanied by family for eval.
Past History
Past History
ED Past Medical History: Arrthythmia (Atrial fib), CAD, HTN, Hypothyroidism and Other (Diastolic heart failure, aortic stenosis); Negative Asthma, Hypercholesterolemia or NIDDM
ED Past Surgical History: Cholecystectomy
Social History
Tobacco: Former smoker
Alcohol: None
Drug: None
Personal:
Living: with family
Review of Systems
Review of Systems
Allergies reviewed?: Yes
All Other Systems: ROS reviewed and negative except as documented in HPI and ROS
Constitutional: Reports no symptoms
EENT: Reports no symptoms
Respiratory: Reports no symptoms
Cardiac: Reports no symptoms
ABD/GI: Reports no symptoms
: Reports no symptoms
Musculoskeletal: Reports joint pain (pain to right knee)
Skin: Reports no symptoms
Neurological: Reports no symptoms
Psychiatric: Reports no symptoms
Musculoskeletal Injury Exam
Musculoskeletal Injury Exam
Right Knee:
Pain with Movement?: Moderate
Tender to palpation?: Moderate
Soft tissue swelling?: Moderate
External deformity and angulation?: None
Joint effusion?: None
Contusion?: Moderate
Hematoma-local bleeding into tissue?: Moderate
Strain- Sprain- Tear (Connective tissue injury)?: Moderate
Crepitus with movement?: No
Joint instability?: No
Malalignment/deformity?: No
Range of motion: Full
Distal skin color and temperature: normal-warm & good color
Capillary Refill: normal
Normal distal neurovascular exam?: Yes
Phy Exam
General Physical Exam
General Presentation: well appearing and no apparent distress
General age: appears stated age
General Skin: warm and dry
General Habitus: normal
General Mental: alert
Eye Exam
Eye Exam: PERRL and EOMI
Pulmonary Exam
Pulmonary Exam: no respiratory distress and chest non tender
Gastrointestinal Exam
Gastrointestinal Exam: non tender, soft and no organomegaly
Neurological Exam
Neurological Exam: alert, oriented x3, CN II-XII intact, no motor deficits, no sensory deficits and speech normal
Skin Exam
Skin Exam: normal color and warm/dry
Psychiatric Exam
Psychiatric Exam: normal mood/affect
Injury Course
Orders/Labs/Results
Orders:
Orders
03/16/25 22:48
Knee, Right 4 or More Views [CR Knee- Right 4 Or More View*] Urgent
Comment:
Reason For Exam: fall
03/16/25 23:38
Oxycodone/Acetaminophen [Percocet 5/325] 1 tablet PO NOW STA
03/16/25 23:56
Knee Immobilizer Right-Treatme ONCE
*Radiology
Radiology exam reviewed: radiology read reviewed
*Pulse Oximetry
Patient hypoxic: no
*Critical Care Note
Total Time (30-74mins, 75-104mins- exclusive of procedures): Not Applicable
ED Attending Note
-
Portions of this chart may have been created with voice recognition software.� Occasional wrong word or��sound alike� substitutions may have occurred due to the inherent limitations of voice recognition software.
Discharge Plan
Departure
Patient Disposition: Home (Routine Discharge)
Date of Disposition: 03/16/25
Time of Disposition: 23:57
Patient with high blood pressure during this ER visit?: No
Condition: Good
Covid-19: Not Applicable
Discharge Problem:
Contusion of knee
Instructions: Contusion (DC), Preventing falls in adults, Cold therapy for pain, How to use a knee brace
Prescriptions:
No Action
acetaminophen [Tylenol Extra Strength] 500 MG tablet
1,000 mg PO Q6HPRN PRN (Reason: mild pain)
cholecalciferol (vitamin D3) 1,000 UNITS tablet
1,000 units PO DAILY
PreserVision AREDS-2 1 EACH capsule
1 ea PO BID
levothyroxine [Synthroid] 112 mcg Tablet
112 mcg PO DAILY
rosuvastatin [Crestor] 5 mg Tablet
5 mg PO QPM
Jardiance 10 mg Tablet
10 mg PO DAILY
Rx Instructions:
Instructed by ordering physician that last dose should be 03/15/25
Incruse Ellipta 62.5 mcg/actuation Blister With Device
1 inh INHALATION R DAILYPRN PRN (Reason: sob)
metoprolol succinate 100 mg Tablet Extended Release 24 Hr
100 mg PO BID Qty: 60 0RF
furosemide [Lasix] 40 mg tablet
60 mg PO DAILY Qty: 30 0RF
furosemide 40 mg Tablet
60 mg PO MOWEFR
Rx Instructions:
Take in the PM with the Potassium Chloride
potassium chloride 20 mEq Packet
20 meq PO MOWEFR
Rx Instructions:
Take in the PM with the Furosemide
Eliquis 5 mg Tablet
5 mg PO BID
Rx Instructions:
Instructed by ordering physician that last dose should be 03/16/25
spironolactone 25 mg tablet
25 mg PO DAILY
mupirocin 2 % ointment
1 applic intranasal BID Qty: 1 0RF
Referrals:
Sofi Pro MD [Family Provider]
Interventions
Interventions:
*Risk Screen - Suicide Last Done: 03/16/25 22:25
*General Assessment Last Done: 03/16/25 22:25
*Neglect/Abuse Screening Last Done: 03/16/25 22:25
*ED- Fall Risk Assessment Last Done: 03/16/25 22:25
*ED COVID-19 Vaccine History Last Done: 03/16/25 22:25
ED-Musculoskeletal Assessment Last Done: 03/16/25 22:55
ED- Neurological Assessment Last Done: 03/16/25 22:55
ED-Skin Assessment Last Done: 03/16/25 22:55
Discharge Date and Time
Print Language: PASHTO
== END 2025-03-17 00:49 | disposition home or self-care (01) ==
LOC: EMR 22:21
PROVIDERS: EMERGENCY PHYSICIAN Emergency Medicine; FAMILY PHYSICIAN Student in an Organized Health Care Education/Training Program
DX: S80.01XA Contusion of right knee, initial encounter (principal); X58.XXXA Exposure to other specified factors, initial encounter; I48.91 Unspecified atrial fibrillation; I25.10 Atherosclerotic heart disease of native coronary artery without angina pectoris; I11.0 Hypertensive heart disease with heart failure; I50.32 Chronic diastolic (congestive) heart failure; E03.9 Hypothyroidism, unspecified; E11.9 Type 2 diabetes mellitus without complications; Z87.891 Personal history of nicotine dependence; Z90.49 Acquired absence of other specified parts of digestive tract
CPT/HCPCS: 99283; 29505; 73564

== ENCOUNTER 2025-03-19 07:58 | Inpatient (IN) | payer MEDICARE, SELFPAY ==
--- NOTE | 2025-03-04 12:56 | CM ---
Addendum entered by Sheri Gardner RN 03/04/25 13:08:
VIVIENNE spoke with patient via live telephone. Patient lives independently with . Patient stated that her daughter will provide supervision post operatively. Patient does not have a history of VN or SNF> Patient has a walker. Patient is active
with her PCP at [facility]. Patient plans to use [facility] for medication services.
PLAN: Home with family.
Original Note:
VIVIENNE left message.
[2025-03-10 11:47] LABS: Hematocrit 43.9 % (37.0-47.0); Hemoglobin 14.7 g/dL (12.0-16.0); Mean Corp Hgb Conc. 33.5 g/dL (33.0-37.0); Mean Corpuscular Hgb 31.5 pg (27.0-31.0); Mean Corpuscular Volume 94.2 fL (81.0-99.0); Mean Platelet Volume 9.2 fL (7.4-10.4); Platelet Count 218 10^3/uL (130-400); Red Blood Cell Count 4.66 10^6/uL (4.20-5.40); Red Cell Dist. Width 13.4 % (11.5-14.5); White Blood Cell Count 6.2 10^3/uL (4.8-10.8)
[2025-03-10 12:47] LABS: Glycohemoglobin (HgbA1c) 5.6 % (4.0-5.6)
[2025-03-10 13:54] LABS: ALT (SGPT) 22 U/L (0-35); AST (SGOT) 33 U/L (14-36); Albumin 4.8 g/dl (3.5-5.0); Alkaline Phosphatase 153 U/L (38-126); Blood Urea Nitrogen 28 mg/dl (7-17); Calcium 9.7 mg/dl (8.4-10.2); Carbon Dioxide 29 mmol/L (22-30); Chloride 102 mmol/L (98-107); Glucose 71 mg/dl (70-99); Potassium 4.4 mmol/L (3.5-5.1); Sodium 140 mmol/L (135-145); Total Bilirubin 1.5 mg/dl (0.2-1.3); Total Protein 7.5 g/dl (6.3-8.2); eGFR > 60.00
[2025-03-10 13:55] VITALS: BMI 28.5
[2025-03-16 09:11] VITALS: BMI 28.5
[2025-03-19] VITALS (13 sets, daily range): BP systolic 88–143; BP diastolic 44–83; PULSE 67; O2SAT 98
[2025-03-19] MEDS: CELEBREX 200 MG PO (08:29)
[2025-03-19] MEDS: TYLENOL 1000 MG PO (08:30)
--- NOTE | 2025-03-19 10:05 | W.PN.UPDATE ---
Update Note
Progress Note Update
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
- s/p L TKA, 2008, and R GINA, 2018, at an outside facility
DVT prophylaxis - Eliquis at modified dosing, b/l venous foot pumps
- Home Eliquis dosing to be resumed POD 3 if hemodynamically stable
HTN - + parameters - monitor BP
CAD with history of NSTEMI
Permanent a fib/flutter with rare palpitations, status post cardioversion x3
Possible PEA arrest 04/2023
- Monitor on tele
- Continue BB
- Eliquis as stated above
CHFpEF
NICM
Pulmonary HTN with CardioMEMS device
- Reduce hourly IVF rate to prevent fluid overload
- Daily weight and monitor I&Os
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
CKD stage 3 - minimize nephrotoxins
GERD - add Pepcid HS
HLD
Mild to moderate valvular disease
Venous varicosities
Chronic dyspnea on exertion
Colon polyps
Multilevel degenerative disc disease with stenosis
Rheumatoid arthritis
Systemic lupus erythematous
Hypothyroidism
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
Chronic sinusitis
Gout
Macular degeneration
Osteopenia
Hearing impairment bilaterally
Remote history of tobacco abuse
--- NOTE | 2025-03-19 13:59 | PTCARENOTE ---
Addendum entered by Shey Hansen RN 03/19/25 14:20:
Spoke with daughter and she will be living with mother for duration of care and will be suppling food and providing care. Pt does not need food bags or community outreach per daughter. Also of note pt was in ED on Saturday the for a fall at
[facility], bruising present on right hip and knee. Apparently she fell two days prior to this also. She requires knee replacement.
Original Note:
1330 pt to 2103,Rt shoulder reversal. AOx3 pleasant block to Rt shoulder no current discomfort, wiggles fingers, + pulse. 2L O2 d/t block, She feels she can not take deep breaths. Sling, primaseal small drainage, marked. ETT, EBL 25mls sore throat.
20g RAC 80 NSS. 2 story home, prior no devices. pt stated she has concerns on her ability to get get groceries upon discharge with distant of family and being disabled. 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 bed low, call banda in reach, HOB.
[2025-03-19] MEDS: VITAMIN D3 (cholecalciferol) PO (15:41)
[2025-03-19] MEDS: NSS 1000 IV (17:42)
[2025-03-19] MEDS: TYLENOL 650 MG PO ×2 (17:43→21:14)
[2025-03-19] MEDS: CRESTOR 5 MG PO (17:43)
[2025-03-19] MEDS: ANCEF 5 IV (17:44)
[2025-03-19] MEDS: COLACE 100 MG PO (21:13)
[2025-03-19] MEDS: DECADRON 4 MG PO (21:13)
[2025-03-19] MEDS: SENOKOT 17.2 MG PO (21:13)
[2025-03-19] MEDS: ELIQUIS 2.5 MG PO (21:13)
[2025-03-19] MEDS: BACTROBAN 2% OINTMENT 1 APPLIC NASAL (21:13)
[2025-03-19] MEDS: NEURONTIN 200 MG PO (21:14)
[2025-03-19] MEDS: PEPCID 20 MG PO (21:14)
[2025-03-19] MEDS: TOPROL XL PO (21:27)
[2025-03-20] MEDS: TYLENOL 650 MG PO ×2 (00:16→10:03)
[2025-03-20] MEDS: ANCEF 5 IV (02:10)
[2025-03-20 03:05] VITALS: BP 110/62
[2025-03-20] MEDS: TYLENOL PO (05:15)
[2025-03-20 06:00] VITALS: BMI 29.2
[2025-03-20] MEDS: SYNTHROID 112 MCG PO (06:00)
[2025-03-20 07:20] VITALS: BP 118/59
[2025-03-20 10:00] VITALS: BP 125/59; PULSE 73; O2SAT 97
[2025-03-20] MEDS: VITAMIN D3 (cholecalciferol) 25 MCG PO (10:02)
[2025-03-20] MEDS: TOPROL XL 100 MG PO (10:03)
[2025-03-20] MEDS: DECADRON 4 MG PO (10:03)
[2025-03-20] MEDS: SENOKOT 17.2 MG PO (10:04)
[2025-03-20] MEDS: ELIQUIS 2.5 MG PO (10:05)
[2025-03-20] MEDS: COLACE 100 MG PO (10:05)
[2025-03-20] MEDS: FARXIGA 10 MG PO (10:05)
[2025-03-20] MEDS: BACTROBAN 2% OINTMENT 1 APPLIC NASAL (10:06)
--- NOTE | 2025-03-20 10:30 | CM ---
CM following re: discharge planning.
Reviewed pt's chart, met with pt. Pt's daughter Paddy and grandson Milind art bedside.
Pt is an 84 year old female, admitted with primary dx of POD#1 Right shoulder rotator cuff arthropathy.
Pt reports she lives with 2SH, 2 steps to enter, has supportive daughter and grandson. pt described herself as independent in all areas [employer], has a walker and a cane and does not use them. Pt reports she was at [facility] after her
hip surgery and has had [facility] in the past.
Both pt and her daughter stated they were told by MD that pt will be discharged home today and they expressed their agreement. IMM reviewed, placed on chart, pt has a copy. Pt's daughter stated she will transport her mother home.
Pt requested [facility] upon the discharge. A referral to [facility] made.
PCP: Soheila Pro
Pharmacy: [facility]
Please fax discharge instructions to [facility] at [phone]
D/C plan: Home with [facility] and family support. Daughter to transport.
--- NOTE | 2025-03-20 10:38 | W.PN.ORTHO ---
Today's Communication / Plan
-
POD#1 s/p right reverse TSA under the direction of Dr. Sunshine
--Non weight bearing to right arm with sling in place
--PT/OT
--Patient's block is still in effect but reviewed pain management as she begins to feel pain
--Maintain dressing until postop appointment
--Post op pain medications have already been sent to patient's pharmacy
--She has an outpatient appointment scheduled in out office 2 weeks postop
--Patient is medically stable for discharge to home today
Assessment
.
Distal Motor Intact: Yes
Dressing:
intact with mild strikethrough
Plan
.
DVT Prophylaxis: Other (eliquis)
Activity:
Out of bed.
PT/OT
Discharge Plan: Home
Subjective
.
.:
Patient sitting up comfortably in chair with family at bedside. She is doing well. She has little pain. Nurse reports she has only required Tylenol for pain management. Her block is still in effect though she does have some feeling and movement in
her fingers. She reports that OT was by this morning.
Vital Signs and Labs
.
Vital Signs and Labs:
Lab Results
03/10/25 10:31
03/10/25 10:31
Temp Pulse Resp BP Pulse Ox
98.2 F 75 16 118/59 99
03/20/25 07:20 03/20/25 07:20 03/20/25 07:20 03/20/25 10:06 03/20/25 07:20
Non-invasive Hgb result: 11.4
Physical Exam
-
Right shoulder with Primaseal dressing in place. there is a small amount of strikethrough present. sensation decreased to upper arm. sensation intact to hand. she has full range of motion of the fingers and wrist. no tenderness to palpation. sling
in place. NVI distally
[2025-03-20 11:15] VITALS: BP 125/67
--- NOTE | 2025-03-20 11:22 | W.DS.TRANS ---
DC Summary - [employer]
-
Discharge Instructions:
Sleep Apnea Risk Low
Discharge Diagnosis/Procedures R shoulder OA s/p R Reverse TSA w/ Dr Sunshine 03/19/
25
Diet Regular
Additional Diets Adequate hydration, minimize opioids, and wear
TEDs stockings to prevent low blood pressure/
dizziness.
Activity As tolerated
Additional Activity Non-weightbearing of right upper extremity
Driving Restrictions Not until seen by your Dr
Bathing Restrictions OK to Shower
Wound Care Leave dressing on until seen by surgeon's office
for follow-up in 2 weeks.
Specialty Instructions Weigh Daily
Instructions:
Stand-Alone Forms: Total Shoulder Replacement D/C
Changes to Home Medications: No
Discharge Medications:
DC Medications w/original date entered in [employer]
cholecalciferol (vitamin D3) 25 mcg (1,000 unit) tablet 1,000 units PO DAILY Supplement 10/08/19
vit C 250 mg-vit E 90 mg-zinc 40 mg-copper 1 [id number] capsule (PreserVision AREDS-2) 1 ea PO BID Eye Condition 10/08/19
levothyroxine 112 mcg tablet (Synthroid) 112 mcg PO DAILY Thyroid 02/01/24
rosuvastatin 5 mg tablet (Crestor) 5 mg PO QPM High Cholesterol 02/01/24
umeclidinium 62.5 mcg/actuation blister powder for inhalation (Incruse Ellipta) 1 inh inhalation R DAILYPRN PRN sob 02/01/24
metoprolol succinate 100 mg tablet,extended release 24 hr 100 mg PO BID #60 tabs 02/04/24
potassium chloride 20 mEq oral packet 20 meq PO MOWEFR Supplement 03/08/25
mupirocin 2 % topical ointment 1 applic intranasal BID #1 tube 03/10/25
acetaminophen 500 mg tablet (Tylenol Extra Strength) 1,000 mg (2 x 500 mg) PO Q6H #60 tabs 03/19/25
apixaban 2.5 mg tablet (Eliquis) 2.5 mg PO BID #3 tabs 03/19/25
apixaban 5 mg tablet (Eliquis) 5 mg PO BID #1 tab 03/19/25
dexamethasone 4 mg tablet 4 mg PO BID Anti-inflammatory #5 tabs 03/19/25
docusate sodium 100 mg capsule 100 mg PO BID #30 caps 03/19/25
empagliflozin 10 mg tablet (Jardiance) 10 mg PO DAILY Heart Failure #1 tab 03/19/25
famotidine 20 mg tablet (Pepcid) 20 mg PO HS #30 tabs 03/19/25
furosemide 40 mg tablet 60 mg (1.5 x 40 mg) PO MOWEFR #1 tab 03/19/25
furosemide 40 mg tablet (Lasix) 60 mg (1.5 x 40 mg) PO DAILY #30 tabs 03/19/25
gabapentin 100 mg capsule 200 mg (2 x 100 mg) PO HS neuropathic pain/sleep #20 caps 03/19/25
ondansetron HCl 4 mg tablet 4 mg PO Q6H PRN nausea and vomiting #30 tabs 03/19/25
oxycodone 5 mg tablet 5 - 10 mg (1 - 2 x 5 mg) PO Q6H PRN moderate-severe pain #30 tabs 03/19/25
sennosides 8.6 mg tablet (Kaylin-onofre) 17.2 mg (2 x 8.6 mg) PO BID #30 tabs 03/19/25
spironolactone 25 mg tablet 25 mg PO DAILY #1 tab 03/19/25
Home Medication Changes
Pending Results: No
--- NOTE | 2025-03-20 11:22 | W.DCSUMMARY ---
Discharge Summary
Discharge Data
Date of Admission: 03/19/25
Date of Discharge: 03/20/25
-
Pending Results: No
Hospital Course
84 year old female admitted to [facility] follow right shoulder reverse total arthroplasty on 03/19/25 under the direction of Dr. Sunshine. Post-operatively, her pain was controlled and her medical status was monitored. She was able to work with
occupational therapy who made recommendations for discharge to home. She is to remain non weight bearing to the right arm with her sling in place. She will leave the dressing in place until her post operative appointment and reinforce as needed. She
is to take pain medications. She will have a follow up appointment two weeks postop. She was deemed medically stable and discharged to home.
Discharge Plan
-
Patient Disposition: Home (Routine Discharge)
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
Condition: Good
Diet: Regular
Additional Diets: Adequate hydration, minimize opioids, and wear TEDs stockings to prevent low blood pressure/dizziness.
Activity: As tolerated
Additional Activity: Non-weightbearing of right upper extremity
Driving Restrictions: Not until seen by your Dr
Bathing Restrictions: OK to Shower
Wound Care: Leave dressing on until seen by surgeon's office for follow-up in 2 weeks.
Specialty Instructions: Weigh Daily- Call MD for wt gain/loss 3 lbs overnight/5 lbs in 1 week
Stand Alone Forms: Total Shoulder Replacement D/C
Referrals:
aRza Sunshine MD [Active, Orthopedics] - in two weeks
Referral Note: If not already scheduled, call to make a follow-up appointment.
Sofi Pro MD [Family Provider]
Additional Discharge Medication Instructions: TAKE BOWEL MEDS DIRECTED UNTIL HAVING REGULAR BMs TO AVOID OBSTRUCTION (regardless of oral intake).
Prescriptions:
New
mupirocin 2 % ointment
1 applic intranasal BID Qty: 1 0RF
Patient Comments:
last dose 03/19/25 0630
oxycodone 5 mg tablet
5 - 10 mg PO Q6H PRN (Reason: moderate-severe pain) Qty: 30 0RF
Rx Instructions:
1 tab for moderate pain, 2 if severe.
Dx total joint.
dexamethasone 4 mg tablet
4 mg PO BID Qty: 5 0RF
Rx Instructions:
Restart night of discharge and continue twice a day until finished.
Take with food.
ondansetron HCl 4 mg tablet
4 mg PO Q6H PRN (Reason: nausea and vomiting) Qty: 30 0RF
famotidine [Pepcid] 20 mg tablet
20 mg PO HS Qty: 30 0RF
Rx Instructions:
Take nightly while on post-surgical pain meds to reduce GI upset.
gabapentin 100 mg capsule
200 mg PO HS Qty: 20 0RF
docusate sodium 100 mg Capsule
100 mg PO BID Qty: 30 0RF
Eliquis 2.5 mg Tablet
2.5 mg PO BID Qty: 3 0RF
Rx Instructions:
Cut 5 mg tab in 10/08 (= 2.5 mg) and take 6/14 PM and 6/15 AM and PM.
DO NOT resume 5 mg twice a day until 616 AM
sennosides [Kaylin-onofre] 8.6 mg Tablet
17.2 mg PO BID Qty: 30 0RF
Eliquis 5 mg tablet
5 mg PO BID Qty: 1 0RF
Rx Instructions:
DO NOT RESUME UNTIL 16
Continued
cholecalciferol (vitamin D3) 1,000 UNITS tablet
1,000 units PO DAILY
PreserVision AREDS-2 1 EACH capsule
1 ea PO BID
levothyroxine [Synthroid] 112 mcg Tablet
112 mcg PO DAILY
rosuvastatin [Crestor] 5 mg Tablet
5 mg PO QPM
Incruse Ellipta 62.5 mcg/actuation Blister With Device
1 inh INHALATION R DAILYPRN PRN (Reason: sob)
metoprolol succinate 100 mg Tablet Extended Release 24 Hr
100 mg PO BID Qty: 60 0RF
potassium chloride 20 mEq Packet
20 meq PO MOWEFR
Rx Instructions:
Take in the PM with the Furosemide
furosemide 40 mg Tablet
60 mg PO MOWEFR Qty: 1 0RF
Rx Instructions:
Take in the PM with the Potassium Chloride
HOLD if systolic blood pressure <130 while on post-surgical narcotics.
furosemide [Lasix] 40 mg tablet
60 mg PO DAILY Qty: 30 0RF
Rx Instructions:
HOLD if systolic blood pressure <130 while on post-surgical narcotics.
Jardiance 10 mg Tablet
10 mg PO DAILY Qty: 1 0RF
Changed
acetaminophen [Tylenol Extra Strength] 500 MG tablet
1,000 mg PO Q6H Qty: 60 0RF
Rx Instructions:
DO NOT exceed >4000 mg daily.
spironolactone 25 mg tablet
25 mg PO DAILY Qty: 1 0RF
Rx Instructions:
HOLD if systolic blood pressure <140 while on post-surgical narcotics.
Discontinued
Eliquis 5 mg Tablet
5 mg PO BID
Rx Instructions:
Instructed by ordering physician that last dose should be 03/16/25
Discharge Orders:
Discharge Patient (As Directed); Ordered 03/20/25
Ordered By: Bess Spangler
Discharge Date and Time
Print Language: [place]
== END 2025-03-20 13:00 | disposition home health service (06) | DRG 483 ==
LOC: 2 SOUTH 07:58
PROVIDERS: ADMITTING PHYSICIAN Specialist; FAMILY PHYSICIAN Student in an Organized Health Care Education/Training Program; REFERRING PHYSICIAN Internal Medicine Advanced Heart Failure and Transplant Cardiology
PROC: 0RRJ00Z Replacement of Right Shoulder Joint with Reverse Ball and Socket Synthetic Substitute, Open Approach (ICD-10-PCS; 2025-03-19)
DX: M19.011 Primary osteoarthritis, right shoulder (principal); I13.0 Hypertensive heart and chronic kidney disease with heart failure and stage 1 through stage 4 chronic kidney disease, or unspecified chronic kidney disease; I50.32 Chronic diastolic (congestive) heart failure; I48.21 Permanent atrial fibrillation; I48.92 Unspecified atrial flutter; I42.8 Other cardiomyopathies; Z79.890 Hormone replacement therapy; Z79.899 Other long term (current) drug therapy; Z79.84 Long term (current) use of oral hypoglycemic drugs; Z79.01 Long term (current) use of anticoagulants; N18.30 Chronic kidney disease, stage 3 unspecified; E78.5 Hyperlipidemia, unspecified; I25.10 Atherosclerotic heart disease of native coronary artery without angina pectoris; I25.2 Old myocardial infarction; I27.20 Pulmonary hypertension, unspecified; K21.9 Gastro-esophageal reflux disease without esophagitis; Z86.0100 Personal history of colon polyps, unspecified; M06.9 Rheumatoid arthritis, unspecified; M32.9 Systemic lupus erythematosus, unspecified; E03.9 Hypothyroidism, unspecified; Z85.3 Personal history of malignant neoplasm of breast; H35.30 Unspecified macular degeneration; J32.9 Chronic sinusitis, unspecified; H91.93 Unspecified hearing loss, bilateral; Z87.891 Personal history of nicotine dependence
CPT/HCPCS: 36415; 73020; 80053; 83036; 85027; 87070; 97110; 97167; 97530; 97535; C1713; C1776